=== PATIENT | male | born 1975 | race Caucasian/White ===

== ENCOUNTER 2019-11-22 10:04 | Emergency (ER) | payer OTHER, SELFPAY ==
[2019-11-22] VITALS (24 sets, daily range): BP systolic 113–164; BP diastolic 53–96; PULSE 34–64; RESP 0–21; TEMP 36–36.8; O2SAT 93–100; BMI 26.7
--- NOTE | 2019-11-22 09:39 | ED_ITS ---
Entered by Aubrie Rodriguez, acting as scribe for Jun Saravia DO HPI - Nausea/Vomiting/Diarrhea General: Chief complaint: Abdominal Pain Stated complaint: N/V Time Seen by Provider: 11/22/19 09:48 Source: patient and EMS Mode of arrival: EMS Limitations: no limitations History of Present Illness: HPI Narrative: 44 yo male presents with nausea and vomiting. pt states this started yesterday. pt states he had a recent gall bladder surgery. Pt has chills and sweating episodes. Pt states his father and EMS tried to give him Zofran but he refused because he didn't want to take anything orally. Pt states he has abdomen pain. pt denies any other symptoms at this time. MD elicited complaint: nausea, vomiting and abdominal pain Pertinent past history: other (recent gall bladder surgery) Description of vomiting: watery and bilious Associated nausea: Yes Associated abdominal pain: Yes Pain consistency: constant Severity: moderate Quality: cramping Exacerbating factors: vomiting Relieving factors: none Associated symtoms: Reports fevers/chills, nausea and other (muscle aches, sweats); Denies anxiety, change in vision, chest pain, dizziness, dysuria, headache(s), malaise, palpitations or syncope Treatment prior to arrival: other (EMS tried to give Zofran but pt stated he refused anything in his mouth.) Review of Systems Const: Denies: malaise Eyes: Denies: change in vision or blurry vision ENMT: Denies: throat pain, oral sores/lesions, dental pain, nasal discharge or nasal congestion Card: Denies: chest pain, palpitations, irregular heart rhythm, edema, syncope, shortness of breath on exertion, shortness of breath when lying down or leg pain with exertion Resp: Denies: shortness of breath, productive cough, non-productive cough or wheezing GI: Reports: nausea : Denies: flank pain, difficulty urinating, painful urination, urinary frequency, urinary urgency, urinary incontinence or blood in urine Musc: Denies: neck pain, back pain, extremity pain, extremity swelling, joint pain or joint swelling Skin/Breast: Denies: rash, itching or redness Neuro: Denies: headache, numbness in extremities, weakness in extremities, changes in sensation, lack of coordination, difficulty walking, frequent falls, dizziness, vertigo or confusion Psych: Denies: anxiety, depression, loss of interest, visual hallucinations, auditory hallucinations, suicidal ideation or homicidal ideation Endo: Denies: excessive urination, excessive thirst, tired all the time or cold intolerance Freddy/Lymph: Denies: easy bruising, easy bleeding, petechiae, enlarged lymph nodes or tender lymph nodes PFSH ED PFSH: Statuses (acute, chronic, etc) shown below reflect problem list status as previously entered and may not be historically accurate Surgical History History of cholecystectomy (Acute) Physical Exam Const: COMMON NORMALS: average body habitus, oriented x3 and alert GENERAL APPEARANCE: cooperative, comfortable, well kempt and well developed NUTRITIONAL APPEARANCE: obese ORIENTATION/CONSCIOUSNESS: Yes awake, Yes oriented to person and Yes oriented to place HENMT: COMMON NORMALS: normocephalic, head/scalp atraumatic, EAC's normal, TM's normal bilaterally, external nose normal, moist oral mucous membranes and oropharynx normal HEAD & SCALP: normocephalic and atraumatic NOSE: external nose normal EXTERNAL AUDITORY CANAL: EAC's normal TYMPANIC MEMBRANE: TM's normal bilaterally MOUTH: oral and palatal mucosa normal, lip normal and tongue normal THROAT: posterior oropharynx normal and tonsils normal Eye: COMMON NORMALS: PERRL, EOMs intact bilaterally, conjunctivae normal and no scleral icterus CONJUNCTIVA: Yes conjunctivae normal PUPIL: Yes PERRL Neck/C-Spine: COMMON NORMALS: full ROM, no lymphadenopathy, supple, no meningeal signs and thyroid normal THYROID: thyroid normal and asymmetrical Lymph: LYMPHATIC: no lymphadenopathy noted Resp: COMMON NORMALS: normal respiratory effort, no retractions, no use of accessory muscles and clear to auscultation bilaterally AUSCULTATION: clear to auscultation bilaterally Cardio: COMMON NORMALS: regular rate and regular rhythm RATE: regular rate RHYTHM: regular rhythm HEART SOUNDS: no murmurs GI: COMMON NORMALS: soft to palpation and no hepatosplenomegaly PALPATION: Yes soft, Yes tender (mild diffuse, no gaurding no rebound) and Yes no hepatosplenomegaly : COMMON NORMALS: Yes no CVA tenderness BLADDER/KIDNEY EXAM: Yes no CVA tenderness Back/Pelvis: COMMON NORMALS: no CVA tenderness LUMBAR SPINE/LOWER BACK: Yes normal to inspection Extremity: COMMON NORMALS: no clubbing, cyanosis or edema, no calf tenderness and no pedal edema Neuro: COMMON NORMALS: oriented x3 SENSORIUM/ORIENTATION: Yes alert, Yes oriented to person and Yes oriented to place MENINGEAL SIGNS: Yes no meningeal signs Psych: APPEARANCE: Yes well kempt Skin: COMMON NORMALS: no rashes or lesions noted and skin turgor normal GENERAL SKIN EXAM: no rashes or lesions noted and turgor normal Course ED course: Patient minimally impfoved after IV fluids and antiemetics. Patient admits to regular heavy use of marijuana. Discussed with him believe he has chronic cannabinoid syndrome which is why he had relatively mild improvement after the antiemetics. We did give him a dose of Ativan that helped some we will discharge him home with Ativan and promethazine. Discussed with him the best way to manage this is warm showers capsaicin cream to the abdomen and ultimately stopping the use of the marijuana. Family member present confirms regular marijuana use and endorses our recommendations to the patient Vital Signs: Vital signs: Vital Signs Temperature 98.2 F 11/22/19 14:18 Pulse Rate 58 L 11/22/19 14:18 Respiratory Rate 18 11/22/19 14:18 Blood Pressure 139/91 11/22/19 14:18 Pulse Oximetry 94 11/22/19 14:18 MDM - Nausea/Vomiting/Diarrhea Lab Data: Labs: Lab Results 11/22/19 11/22/19 11/22/19 Range/Units 09:53 09:53 10:18 WBC 16.3 H (4.0-10.0) 10^3/ uL RBC 4.77 (4.1-5.3) 10^6/u L Hgb 15.1 (11.7-16.6) g/dL Hct 46.2 (42.0-52.0) % MCV 96.9 H (80-94) fL MCH 31.7 (28.0-34.0) pg MCHC 32.7 (30.0-36.0) g/dL RDW 12.7 (12.1-15.1) % Plt Count 169 (130-400) 10^3/c mm MPV 10.4 (7.4-10.4) fL Neut % (Auto) 87.6 % Lymph % (Auto) 8.0 % [place] % (Auto) 3.4 % Eos % (Auto) 0.4 % Baso % (Auto) 0.2 % Neut # (Auto) 14.3 H (1.8-7.7) 10^3/u L Lymph # (Auto) 1.3 (0.8-4.8) 10^3/u L [place] # (Auto) 0.6 (0.2-0.9) 10^3/u L Eos # (Auto) 0.1 (0.0-0.8) 10^3/u L Baso # (Auto) 0.0 (0.0-0.1) 10^3/u L Nucleated RBC % (a uto) 0 % Nucleated RBCs # 0.0 /100WBC Sodium 138 (136-145) mmol/L Potassium 4.5 (3.5-5.1) mmol/L Chloride 104 (98-107) mmol/L Carbon Dioxide 21 L (22-29) mmol/L Anion Gap 17.5 (5-19) BUN 14 (6-20) mg/dL Creatinine 0.9 (0.7-1.2) mg/dL GFR Calculation 92.1 (90-130) mL/min Glucose 175 H (74-109) mg/dL Calcium 10.1 H (8.6-10.0) mg/Dl Total Bilirubin 0.4 (0.15-1.2) mg/dL AST 23 (0-40) U/L ALT 19 (0-41) U/L Alkaline Phosphata se 101 (40-130) IU/L Total Protein 7.0 (6.6-8.7) g/dL Albumin 4.9 (3.5-5.2) g/dL Globulin 2.1 (1.3-4.6) g/dL Lipase 44 (13-60) U/L Influenza Type A A g Negative (Negative) POC Influenza B Ag Negative (Negative) Imaging Data^: CXR: Radiologist's impression: [address] [address] XRay Report Signed Patient: Isauro Chacon AUnit #: [id number] : 1975Acct#:[id number] Age/Sex: 44 / MADM Date: 11/22/19 Loc: ERRoom/Bed: Attending Dr: Ordering Provider/Ordering MD: Jun Saravia DO Date of Service: 11/22/19 Procedure(s): XR chest 1V portable [id number] Accession Number(s): [id number] Report Number: [id number] WS: [id number] Portable AP upright chest, 11/22/2019 Clinical Data: dyspnea Comparison: None. Findings: No nodules, masses or effusions are seen. The heart is normal. The pulmonary vascularity is not increased. No pneumonia or pneumothorax is seen. XR/XR chest 1V portable 21194 Impression: Negative chest. Dictated By:Mana Fontanez MD Signed By:Mana Fontanezigned Date/Time:11/22/191303 DD/ 1303 CT Abd/Pel: Radiologist's impression: [place] [address] CT Scan Report Signed Patient: Isauro Chacon AUnjing #: [id number] : 1975Acct#:[id number] Age/Sex: 44 / MADM Date: 11/22/19 Loc: ERRoom/Bed: Attending Dr: Ordering Provider/Ordering MD: Jun Saravia DO Date of Service: 11/22/19 Procedure(s): CT abdomen pelvis w con* [id number] Accession Number(s): [id number] Report Number: [id number] WS: [id number] CT ABDOMEN PELVIS TECHNIQUE: Contrast-enhanced CT of the abdomen and pelvis with coronal and sagittal reformatted images. CLINICAL INFORMATION: abd pain/n/v COMPARISON: 2018 DLP: 907.[address] scans at [facility] use at least one of these dose optimization techniques: automated exposure control; mA and/or kV adjustment per patient size (includes targeted exams where dose is matched to clinical indication); or iterative reconstruction. FINDINGS: Prior cholecystectomy. Normal portal vein and splenic vein. Splenic granulomas. Normal renal parenchymal enhancement. Prostate calcification. No evidence of small or large bowel obstruction. Normal caliber abdominal aorta. Fat-containing umbilical hernia. Prior vertebroplasty changes at L1. Pedicle and screw fixation L2-L4. Stable chronic compression L3. CT/CT abdomen pelvis w con* [id number] IMPRESSION: 1. Prior cholecystectomy. 2. No evidence of small or large bowel obstruction. 3. Remote L1 and L3 compression fractures with prior instrumentation. Dictated By:Jimmy Martinez MD Signed By:Jimmy Martinez MDSigned Date/Time:11/22/19 1235 DD/ 1227 Discharge Plan Discharge Patient Disposition: Home, Self-Care Clinical Impression: Cannabinoid hyperemesis syndrome, Gastroenteritis, Nausea & vomiting Condition: Stable Prescriptions: New promethazine 25 mg tablet 25 mg PO Q6H PRN (Reason: nausea and vomiting) Qty: 20 RF: 0 Ativan 0.5 mg tablet 0.5 mg PO Q8H PRN (Reason: nausea and vomiting) Qty: 10 RF: 0 Discharge Orders: Discharge Order (Routine); Ordered 11/22/19 Ordered By: Jun Saravia Interventions: ED Discharge Assessment Last Done: 11/22/19 14:18 Discharge Date/Time: 11/22/19 14:19 Coding Level of Care Code ED Principal Quality Engineer for Chg Fwd Exam Problem Focused The documentation recorded by the Michael brooks Bridget Annette, accurately reflects the service I personally performed and the decisions made by Manjit vivar Curtis L, DO Nov 22, 2019 10:04
--- NOTE | 2019-11-22 09:48 | XR_ITS ---
WS: [id number] Portable AP upright chest, 11/22/2019 Clinical Data: dyspnea Comparison: None. Findings: No nodules, masses or effusions are seen. The heart is normal. The pulmonary vascularity is not increased. No pneumonia or pneumothorax is seen. XR/XR chest 1V portable [id number] Impression: Negative chest.
--- NOTE | 2019-11-22 09:48 | CT_ITS ---
WS: [id number] CT ABDOMEN PELVIS TECHNIQUE: Contrast-enhanced CT of the abdomen and pelvis with coronal and sagittal reformatted image s. CLINICAL INFORMATION: abd pain/n/v COMPARISON: 2018 DLP: 907.[address] scans at [facility] use at least one of these dose optimization techniques: automat ed exposure control; mA and/or kV adjustment per patient size (includes targeted exams where dose is matched to clinical indication); or iterative reconstruction. FINDINGS: Prior cholecystectomy. Normal portal vein and splenic vein. Splenic granulomas. Normal renal parenchy mal enhancement. Prostate calcification. No evidence of small or large bowel obstruction. Normal brian alfonzo abdominal aorta. Fat-containing umbilical hernia. Prior vertebroplasty changes at L1. Pedicle and screw fixation L2-L4 . Stable chronic compression L3. CT/CT abdomen pelvis w con* [id number] IMPRESSION: 1. Prior cholecystectomy. 2. No evidence of small or large bowel obstruction. 3. Remote L1 and L3 compression fractures with prior instrumentation.
[2019-11-22 10:02] LABS: Basophils % 0.2 %; Eosinophils # 0.1 10^3/uL (0.0-0.8); Eosinophils % 0.4 %; Hematocrit 46.2 % (42.0-52.0); Hemoglobin 15.1 g/dL (11.7-16.6); Lymphocytes # 1.3 10^3/uL (0.8-4.8); Mean Corpuscular HGB Conc 32.7 g/dL (30.0-36.0); Mean Corpuscular Hemoglobin 31.7 pg (28.0-34.0); Mean Corpuscular Volume 96.9 fL (80-94); Mean Platelet Volume 10.4 fL (7.4-10.4); Monocytes # 0.6 10^3/uL (0.2-0.9); Monocytes % 3.4 %; Neutrophils # 14.3 10^3/uL (1.8-7.7); Neutrophils % 87.6 %; Nucleated Red Blood Cells % 0 %; Platelet Count 169 10^3/cmm (130-400); Red Blood Count 4.77 10^6/uL (4.1-5.3); Red Cell Distribution Width 12.7 % (12.1-15.1); White Blood Count 16.3 10^3/uL (4.0-10.0)
[2019-11-22] MEDS: sodium chloride 0.9% 1,000 ML 999 ML IV ×2 (10:13→11:21)
[2019-11-22] MEDS: ondansetron 2 mg/ML SDV 2 mL 4 MG IVP (10:13)
[2019-11-22 10:22] LABS: Alanine Aminotransferase 19 U/L (0-41); Albumin Level 4.9 g/dL (3.5-5.2); Alkaline Phosphatase 101 IU/L (40-130); Anion Gap 17.5 (5-19); Aspartate Amino Transferase 23 U/L (0-40); Blood Urea Nitrogen 14 mg/dL (6-20); Calcium 10.1 mg/Dl (8.6-10.0); Carbon Dioxide 21 mmol/L (22-29); Chloride 104 mmol/L (98-107); Globulin 2.1 g/dL (1.3-4.6); Glomerular Filtration Rate 92.1 mL/min (90-130); Glucose 175 mg/dL (74-109); Lipase 44 U/L (13-60); Potassium 4.5 mmol/L (3.5-5.1); Sodium 138 mmol/L (136-145); Total Bilirubin 0.4 mg/dL (0.15-1.2)
[2019-11-22 11:01] LABS: Influenza A by IFA Negative (Negative); Influenza B by IFA Negative (Negative)
--- NOTE | 2019-11-22 11:24 | PC.NURSE ---
Pt up to BR
--- NOTE | 2019-11-22 11:36 | PC.NURSE ---
Pt to radiology
[2019-11-22] MEDS: iohexol 300 mg/mL 100 mL Btl IV (11:45)
--- NOTE | 2019-11-22 11:48 | PC.NURSE ---
Pt returned from CT
--- NOTE | 2019-11-22 12:43 | PC.NURSE ---
Pt moved to jeffries bed for now
[2019-11-22] MEDS: sodium chloride 0.9% 1,000 ML 150 ML IV (12:56)
== END 2019-11-22 14:19 | disposition home or self-care (01) ==
PROVIDERS: Emergency Provider Family Medicine
DX: F12.988 Cannabis use, unspecified with other cannabis-induced disorder (principal); R11.10 Vomiting, unspecified; K52.9 Noninfective gastroenteritis and colitis, unspecified
CPT/HCPCS: 36415; 71045; 74177; 80053; 83690; 85025; 87040; 87804; 96360; 96361; 96374; 99283; J2405; J7030; Q9967

== ENCOUNTER → 2020-01-05 14:43 | Outpatient (BNVA) | payer OTHER, SELFPAY | PROVIDERS: PCP Emergency Medicine Emergency Medical Services; Visit Provider Nurse Practitioner Family | DX: R09.81 Nasal congestion (principal); J01.40 Acute pansinusitis, unspecified; L01.00 Impetigo, unspecified | CPT/HCPCS: 87804 ==

== ENCOUNTER 2020-05-01 09:37 | Outpatient (CLI) | payer OTHER, SELFPAY ==
--- NOTE | 2020-05-01 09:46 | XRR_ITS ---
PROCEDURE INFORMATION: Exam: XR Lumbosacral Spine, 2 or 3 Views Exam date and time: 05/01/2020 9:59 AM Age: 44 years old Clinical indication: Low back pain; Prior surgery; Surgery date: 1-6 months; Surgery type: L spine TECHNIQUE: Imaging protocol: XR of the lumbosacral spine, 2 or 3 views. COMPARISON: No relevant prior studies available. FINDINGS: Vertebrae: Lumbar laminectomy and pedicle screw fixation extending from L2-L4, in association with L3 compression fracture. L1 vertebral plasty. Degenerative change. Intraperitoneal space: Status post cholecystectomy. Gastrointestinal tract: Bowel dilatation and prominent stool. Vasculature: Multiple subcentimeter pelvic calcifications, presumably vascular in etiology. XR/XR lumbar spine 2-3V* [id number] IMPRESSION: Lumbar laminectomy and pedicle screw fixation extending from L2-L4, in association with L3 compression fracture.
== END 2020-05-01 09:38 | disposition home or self-care (01) ==
LOC: RAD 09:43
PROVIDERS: PCP Emergency Medicine Emergency Medical Services; Visit Provider Physician Assistant
DX: S32.030A Wedge compression fracture of third lumbar vertebra, initial encounter for closed fracture (principal); X58.XXXA Exposure to other specified factors, initial encounter
CPT/HCPCS: 72100

== ENCOUNTER 2020-05-27 19:46 | Emergency (ER) | payer OTHER, SELFPAY ==
[2020-05-27 20:07] VITALS: BP 177/140; PULSE 84; RESP 25; TEMP 35.9; O2SAT 100; BMI 26.2
--- NOTE | 2020-05-27 20:09 | W.ED.ABDPA2 ---
HPI - Abdominal Pain General: Chief Complaint: Abdominal Pain Stated Complaint: vomitting Time Seen by Provider: 05/27/20 20:06 Source: patient Mode of arrival: ambulatory Limitations: no limitations History of Present Illness: HPI narrative: 44-year-old male who has a history of cyclical vomiting syndrome states he started vomiting 1 hour ago. Patient currently is actively vomiting and is sticking his finger down his throat while was in the room vomiting. Patient been seen here before for same. He has diffuse abdominal pain as well. He denies any recent illnesses or fever. He denies any diarrhea. MD elicited complaint: abdominal pain Onset (ago): hour(s) Pain Consistency: constant Location: Diffuse Severity: moderate Quality: cramping Exacerbating factors: nothing Relieving factors: nothing Associated Symptoms: Reports nausea and vomiting; Denies chills, dysuria and fever(s) Review of Systems Const: Denies: fever(s), chills, body aches or change in appetite Eyes: Denies: blurry vision or eye discomfort ENMT: Denies: throat pain or dental pain Card: Denies: chest pain Resp: Denies: dyspnea GI: Reports: abdominal pain, nausea and vomiting : Denies: dysuria Musc: Denies: neck pain or back pain Skin/Breast: Denies: rash Neuro: Denies: headache(s) Psych: Denies: depression Freddy/Lymph: Denies: easy bruising All/Imm: Denies: urticaria PFSH ED PFSH: Surgical History History of cholecystectomy Social History (Updated 01/05/20 @ 14:44 by Cara Farmer LPN) Smoking and tobacco status: never smoked Alcohol intake: never Physical Exam Const: COMMON NORMALS: patient oriented x3 and healthy appearing GENERAL APPEARANCE: in distress OTHER: Actively vomiting HENMT: COMMON NORMALS: normocephalic and atraumatic HEAD & SCALP: normocephalic and atraumatic Eye: COMMON NORMALS: Equal, round and reactive pupils present and EOMs intact bilaterally PUPIL: Yes Equal, round and reactive pupils present Neck/C-Spine: COMMON NORMALS: full ROM and supple Chest: COMMONS NORMALS: normal inspection of the chest and normal palpation of entire chest wall Resp: COMMON NORMALS: normal respiratory effort, No retractions, No use of accessory muscles and clear to auscultation bilaterally AUSCULTATION: clear to auscultation bilaterally Cardio: COMMON NORMALS: regular rate, regular rhythm and No murmurs present (Cardio) RATE: regular rate RHYTHM: regular rhythm GI: COMMON NORMALS: Normal to inspection, nondistended, normoactive bowel sounds present, Soft to palpation, non-tender and no masses PALPATION: Yes Soft to palpation Extremity: COMMON NORMALS: normal to inspection and full ROM Neuro: COMMON NORMALS: patient oriented x3, moves all extremities and no focal motor deficits Psych: COMMON NORMALS: mental status grossly normal, Normal thought process present and cooperative THOUGHT PROCESS: Normal thought process present Skin: COMMON NORMALS: no rashes or lesions noted and no wounds GENERAL SKIN EXAM: no rashes or lesions noted Course Vital Signs: Vital signs: Vital Signs Temperature 96.7 F L 05/27/20 20:07 Pulse Rate 68 05/27/20 22:46 Respiratory Rate 18 05/27/20 22:46 Blood Pressure 125/87 05/27/20 22:46 Pulse Oximetry 98 05/27/20 22:46 MDM - Abdominal Pain MDM Narrative: Medical decision making narrative: Isauro presents here with vomiting and has a history of cyclical vomiting syndrome. Patient feels improved here after antinausea meds. Patient's blood work is normal and he has no signs of acute surgical emergency. Patient is stable for discharge will prescribe him Reglan. He is to follow-up with primary care doctor in 3 to 5 days and return if worsening. Lab Data: Labs: Lab Results 05/27/20 05/27/20 Range/Units 20:23 20:23 WBC 9.3 (4.0-10.0) 10^3/ uL RBC 4.94 (4.1-5.3) 10^6/u L Hgb 15.4 (11.7-16.6) g/dL Hct 46.5 (42.0-52.0) % MCV 94.1 H (80-94) fL MCH 31.2 (28.0-34.0) pg MCHC 33.1 (30.0-36.0) g/dL RDW 13.0 (12.1-15.1) % Plt Count 203 (130-400) 10^3/c mm MPV 10.0 (7.4-10.4) fL Neut % (Auto) 61.7 % Lymph % (Auto) 28.3 % [place] % (Auto) 6.4 % Eos % (Auto) 2.5 % Baso % (Auto) 0.8 % Neut # (Auto) 5.73 (1.8-7.7) 10^3/u L Lymph # (Auto) 2.6 (0.8-4.8) 10^3/u L [place] # (Auto) 0.6 (0.2-0.9) 10^3/u L Eos # (Auto) 0.2 (0.0-0.8) 10^3/u L Baso # (Auto) 0.1 (0.0-0.1) 10^3/u L Nucleated RBC % (a uto) 0 % Nucleated RBCs # 0.0 /100WBC Sodium 142 (136-145) mmol/L Potassium 3.2 L (3.5-5.1) mmol/L Chloride 104 (98-107) mmol/L Carbon Dioxide 19 L (22-29) mmol/L Anion Gap 22.2 H (5-19) BUN 11 (6-20) mg/dL Creatinine 1.1 (0.7-1.2) mg/dL GFR Calculation 73.1 L (90-130) mL/min Glucose 119 H (65-115) mg/dL Calculated Osmolal ity 291 (285-295) mOsm/k g Calcium 9.9 (8.5-10.5) mg/dL Total Bilirubin 0.8 (0.15-1.2) mg/dL AST 31 (0-40) U/L ALT 22 (0-41) U/L Alkaline Phosphata se 108 (40-130) IU/L Total Protein 8.1 (6.6-8.7) g/dL Albumin 5.4 H (3.5-5.2) g/dL Globulin 2.7 (1.3-4.6) g/dL Lipase 21 (13-60) U/L Discharge Plan Discharge Patient Disposition: Home, Self-Care Clinical Impression: Vomiting Qualifiers: Vomiting type: unspecified Vomiting Intractability: non-intractable Nausea presence: with nausea Qualified Code(s): R11.2 - Nausea with vomiting, unspecified Abdominal pain Qualifiers: Abdominal location: generalized Qualified Code(s): R10.84 - Generalized abdominal pain Condition: Stable Prescriptions: New ondansetron 4 mg tablet,disintegrating 4 mg PO Q6H PRN (Reason: nausea and vomiting) Qty: 14 RF: 0 No Action acetaminophen 325 mg capsule 650 mg PO ONCE Qty: 2 RF: 0 Ativan 0.5 mg tablet 0.5 mg PO Q8H PRN (Reason: nausea and vomiting) Qty: 10 RF: 0 Discharge Orders: Discharge Order (Routine); Ordered 05/27/20 Ordered By: Le Mazariegos Referrals: Mian Hendrickson DO [Primary Care Provider] - 1-3 days Discharge Diet: Advance as tolerated Discharge Activity: Resume usual activity Patient Instructions: Acute Nausea and Vomiting (ED), Abdominal Pain (ED) Discharge Date/Time: 05/27/20 22:48 Coding Level of Care Code ED Insurance Claims Clerk for Susie Fwd Exam Comprehensive
[2020-05-27 20:29] LABS: Basophils # 0.1 10^3/uL (0.0-0.1); Basophils % 0.8 %; Eosinophils # 0.2 10^3/uL (0.0-0.8); Eosinophils % 2.5 %; Hematocrit 46.5 % (42.0-52.0); Hemoglobin 15.4 g/dL (11.7-16.6); Lymphocytes # 2.6 10^3/uL (0.8-4.8); Lymphocytes % 28.3 %; Mean Corpuscular HGB Conc 33.1 g/dL (30.0-36.0); Mean Corpuscular Hemoglobin 31.2 pg (28.0-34.0); Mean Corpuscular Volume 94.1 fL (80-94); Monocytes # 0.6 10^3/uL (0.2-0.9); Monocytes % 6.4 %; Neutrophils # 5.73 10^3/uL (1.8-7.7); Neutrophils % 61.7 %; Nucleated Red Blood Cells % 0 %; Platelet Count 203 10^3/cmm (130-400); Red Blood Count 4.94 10^6/uL (4.1-5.3); White Blood Count 9.3 10^3/uL (4.0-10.0)
[2020-05-27 20:33] VITALS: RESP 18; O2SAT 98
[2020-05-27] MEDS: morphine 4 mg/mL SDV 1 mL IVP ×2 (20:33→21:53)
[2020-05-27] MEDS: LORazepam 2 mg/mL INJ 1 mL 1 MG IVP (20:34)
[2020-05-27] MEDS: metoclopramide 5 mg/mL SDV 2 mL 10 MG IVP (20:35)
[2020-05-27] MEDS: diphenhydrAMINE 50 mg/mL SDV 1mL 25 MG IVP (20:35)
[2020-05-27] MEDS: sodium chloride 0.9% 1,000 ML 999 ML IV (20:36)
[2020-05-27 20:43] LABS: Alanine Aminotransferase 22 U/L (0-41); Albumin Level 5.4 g/dL (3.5-5.2); Alkaline Phosphatase 108 IU/L (40-130); Anion Gap 22.2 (5-19); Aspartate Amino Transferase 31 U/L (0-40); Blood Urea Nitrogen 11 mg/dL (6-20); Calcium 9.9 mg/dL (8.5-10.5); Carbon Dioxide 19 mmol/L (22-29); Chloride 104 mmol/L (98-107); Globulin 2.7 g/dL (1.3-4.6); Glomerular Filtration Rate 73.1 mL/min (90-130); Glucose 119 mg/dL (65-115); Lipase 21 U/L (13-60); Osmolality Calculated 291 mOsm/kg (285-295); Potassium 3.2 mmol/L (3.5-5.1); Sodium 142 mmol/L (136-145); Total Bilirubin 0.8 mg/dL (0.15-1.2); Total Protein 8.1 g/dL (6.6-8.7)
[2020-05-27] MEDS: LORazepam 2 mg/mL INJ 1 mL 0.5 MG IVP (21:52)
[2020-05-27 21:53] VITALS: RESP 18; O2SAT 99
[2020-05-27] MEDS: ondansetron 2 mg/ML SDV 2 mL 4 MG IVP (22:13)
[2020-05-27 22:46] VITALS: BP 125/87; PULSE 68; RESP 18; O2SAT 98
== END 2020-05-27 22:48 | disposition home or self-care (01) ==
PROVIDERS: Nurse Practitioner Family; Emergency Provider Emergency Medicine; PCP Emergency Medicine Emergency Medical Services
DX: R10.84 Generalized abdominal pain (principal); R11.2 Nausea with vomiting, unspecified
CPT/HCPCS: 12345; 80053; 83690; 85025; 96361; 96374; 96375; 96376; 99282; 99283; J1200; J2060; J2270; J2405; J2765; J7030

== ENCOUNTER 2020-07-31 02:28 | Emergency (ER) | payer OTHER, SELFPAY ==
[2020-07-31 02:35] VITALS: BP 151/81; PULSE 99; RESP 18; TEMP 36.4; O2SAT 100; BMI 27.0
--- NOTE | 2020-07-31 02:47 | W.ED.NAVMDI ---
HPI - Nausea/Vomiting/Diarrhea General: Chief complaint: Nausea/Vomiting/Diarrhea Stated complaint: Abd pain/vomiting Time Seen by Provider: 07/31/20 02:33 Source: patient Mode of arrival: ambulatory Limitations: no limitations History of Present Illness: HPI Narrative: 44-year-old male has a history of cyclical vomiting syndrome. He states he started having severe vomiting 1 hour ago. He had multiple episodes of vomiting and severe nausea. He has abdominal cramping he rates a 5 out of 10. He states this feels like his sickle vomiting in the past. He denies any fever. Denies any diarrhea. Denies any worsening improving factors. Associated nausea: Yes Associated symtoms: Reports nausea; Denies chest pain, dysuria or headache(s) Review of Systems Const: Denies: fever(s), chills, body aches or change in appetite Eyes: Denies: blurry vision or eye discomfort ENMT: Denies: throat pain or dental pain Card: Denies: chest pain Resp: Denies: dyspnea GI: Reports: abdominal pain, nausea and vomiting : Denies: dysuria Musc: Denies: neck pain or back pain Skin/Breast: Denies: rash Neuro: Denies: headache(s) Psych: Denies: depression Freddy/Lymph: Denies: easy bruising All/Imm: Denies: urticaria PFSH ED PFSH: Surgical History History of cholecystectomy Social History Smoking and tobacco status: never smoked Alcohol intake: never Physical Exam Const: COMMON NORMALS: patient oriented x3 and healthy appearing GENERAL APPEARANCE: in distress HENMT: COMMON NORMALS: normocephalic and atraumatic HEAD & SCALP: normocephalic and atraumatic Eye: COMMON NORMALS: Equal, round and reactive pupils present and EOMs intact bilaterally PUPIL: Yes Equal, round and reactive pupils present Neck/C-Spine: COMMON NORMALS: full ROM and supple Chest: COMMONS NORMALS: normal inspection of the chest and normal palpation of entire chest wall Resp: COMMON NORMALS: normal respiratory effort, No retractions, No use of accessory muscles and clear to auscultation bilaterally AUSCULTATION: clear to auscultation bilaterally Cardio: COMMON NORMALS: regular rate, regular rhythm and No murmurs present (Cardio) RATE: regular rate RHYTHM: regular rhythm GI: COMMON NORMALS: Normal to inspection, nondistended, normoactive bowel sounds present, Soft to palpation, non-tender and no masses PALPATION: Yes Soft to palpation Extremity: COMMON NORMALS: normal to inspection and full ROM Neuro: COMMON NORMALS: patient oriented x3, moves all extremities and no focal motor deficits Psych: COMMON NORMALS: mental status grossly normal, Normal thought process present and cooperative THOUGHT PROCESS: Normal thought process present Skin: COMMON NORMALS: no rashes or lesions noted and no wounds GENERAL SKIN EXAM: no rashes or lesions noted Course Vital Signs: Vital signs: Vital Signs Temperature 97.6 F 07/31/20 02:35 Pulse Rate 61 07/31/20 03:36 Respiratory Rate 12 07/31/20 03:36 Blood Pressure 161/92 07/31/20 03:36 Pulse Oximetry 92 07/31/20 03:36 MDM - Nausea/Vomiting/Diarrhea MDM Narrative: Medical decision making narrative: Patient presents here with vomiting likely sickle vomiting syndrome. Patient feels much improved here and exam at discharge is benign. Blood work here is normal. He has no signs of acute abdominal surgical cause. Will prescribe him Reglan and he is stable for discharge and return if worsening. Lab Data: Labs: Lab Results 07/31/20 07/31/20 Range/Units 02:50 02:50 WBC 10.8 H (4.0-10.0) 10^3/ uL RBC 4.74 (4.1-5.3) 10^6/u L Hgb 14.8 (11.7-16.6) g/dL Hct 44.2 (42.0-52.0) % MCV 93.2 (80-94) fL MCH 31.2 (28.0-34.0) pg MCHC 33.5 (30.0-36.0) g/dL RDW 12.3 (12.1-15.1) % Plt Count 216 (130-400) 10^3/c mm MPV 10.2 (7.4-10.4) fL Neut % (Auto) 65.0 % Lymph % (Auto) 25.5 % [place] % (Auto) 6.9 % Eos % (Auto) 1.7 % Baso % (Auto) 0.7 % Neut # (Auto) 7.04 (1.8-7.7) 10^3/u L Lymph # (Auto) 2.8 (0.8-4.8) 10^3/u L [place] # (Auto) 0.8 (0.2-0.9) 10^3/u L Eos # (Auto) 0.2 (0.0-0.8) 10^3/u L Baso # (Auto) 0.1 (0.0-0.1) 10^3/u L Nucleated RBC % (a uto) 0 % Nucleated RBCs # 0.0 /100WBC Sodium 141 (136-145) mmol/L Potassium 3.3 L (3.5-5.1) mmol/L Chloride 104 (98-107) mmol/L Carbon Dioxide 22 (22-29) mmol/L Anion Gap 18.3 (5-19) BUN 16 (6-20) mg/dL Creatinine 1.2 (0.7-1.2) mg/dL GFR Calculation 66.1 L (90-130) mL/min Glucose 164 H (65-115) mg/dL Calculated Osmolal ity 297 H (285-295) mOsm/k g Calcium 10.1 (8.5-10.5) mg/dL Total Bilirubin 0.6 (0.15-1.2) mg/dL AST 26 (0-40) U/L ALT 21 (0-41) U/L Alkaline Phosphata se 102 (40-130) IU/L Total Protein 7.4 (6.6-8.7) g/dL Albumin 4.7 (3.5-5.2) g/dL Globulin 2.7 (1.3-4.6) g/dL Lipase 31 (13-60) U/L Discharge Plan Discharge Patient Disposition: Home Clinical Impression: Vomiting Qualifiers: Vomiting type: unspecified Vomiting Intractability: non-intractable Nausea presence: with nausea Qualified Code(s): R11.2 - Nausea with vomiting, unspecified Condition: Stable Prescriptions: New Reglan 10 mg tablet 10 mg PO Q6H PRN (Reason: nausea and vomiting) Qty: 20 RF: 0 No Action acetaminophen 325 mg capsule 650 mg PO ONCE Qty: 2 RF: 0 Ativan 0.5 mg tablet 0.5 mg PO Q8H PRN (Reason: nausea and vomiting) Qty: 10 RF: 0 ondansetron 4 mg tablet,disintegrating 4 mg PO Q6H PRN (Reason: nausea and vomiting) Qty: 14 RF: 0 Discharge Orders: Discharge Order (Routine); Ordered 07/31/20 Ordered By: Le Mazariegos Referrals: Mian Hendrickson DO [Primary Care Provider] - 1-3 days Discharge Diet: Advance as tolerated Discharge Activity: Resume usual activity Patient Instructions: Acute Nausea and Vomiting (ED) Coding Level of Care Code ED [employer] Technician for Chg Fwd Exam Comprehensive
[2020-07-31] MEDS: metoclopramide 5 mg/mL SDV 2 mL 10 MG IVP (02:50)
[2020-07-31] MEDS: diphenhydrAMINE 50 mg/mL SDV 1mL IVP (02:51)
[2020-07-31] MEDS: sodium chloride 0.9% 1,000 ML 999 ML IV (02:52)
[2020-07-31 02:58] VITALS: BP 168/85; PULSE 50; RESP 12; O2SAT 100
[2020-07-31 02:59] LABS: Basophils # 0.1 10^3/uL (0.0-0.1); Basophils % 0.7 %; Eosinophils # 0.2 10^3/uL (0.0-0.8); Eosinophils % 1.7 %; Hematocrit 44.2 % (42.0-52.0); Hemoglobin 14.8 g/dL (11.7-16.6); Lymphocytes # 2.8 10^3/uL (0.8-4.8); Lymphocytes % 25.5 %; Mean Corpuscular HGB Conc 33.5 g/dL (30.0-36.0); Mean Corpuscular Hemoglobin 31.2 pg (28.0-34.0); Mean Corpuscular Volume 93.2 fL (80-94); Mean Platelet Volume 10.2 fL (7.4-10.4); Monocytes # 0.8 10^3/uL (0.2-0.9); Monocytes % 6.9 %; Neutrophils # 7.04 10^3/uL (1.8-7.7); Nucleated Red Blood Cells % 0 %; Platelet Count 216 10^3/cmm (130-400); Red Blood Count 4.74 10^6/uL (4.1-5.3); Red Cell Distribution Width 12.3 % (12.1-15.1); White Blood Count 10.8 10^3/uL (4.0-10.0)
[2020-07-31 03:03] VITALS: RESP 18; O2SAT 97
[2020-07-31] MEDS: LORazepam 2 mg/mL INJ 1 mL 1 MG IVP (03:03)
[2020-07-31] MEDS: morphine 4 mg/mL SDV 1 mL IVP (03:03)
[2020-07-31 03:28] LABS: Alanine Aminotransferase 21 U/L (0-41); Albumin Level 4.7 g/dL (3.5-5.2); Alkaline Phosphatase 102 IU/L (40-130); Anion Gap 18.3 (5-19); Aspartate Amino Transferase 26 U/L (0-40); Blood Urea Nitrogen 16 mg/dL (6-20); Calcium 10.1 mg/dL (8.5-10.5); Carbon Dioxide 22 mmol/L (22-29); Chloride 104 mmol/L (98-107); Globulin 2.7 g/dL (1.3-4.6); Glomerular Filtration Rate 66.1 mL/min (90-130); Glucose 164 mg/dL (65-115); Lipase 31 U/L (13-60); Osmolality Calculated 297 mOsm/kg (285-295); Potassium 3.3 mmol/L (3.5-5.1); Sodium 141 mmol/L (136-145); Total Bilirubin 0.6 mg/dL (0.15-1.2); Total Protein 7.4 g/dL (6.6-8.7)
[2020-07-31 03:36] VITALS: BP 161/92; PULSE 61; RESP 12; O2SAT 92
[2020-07-31 04:02] VITALS: BP 137/91; PULSE 51; RESP 12; O2SAT 97
== END 2020-07-31 03:49 | disposition home or self-care (01) ==
PROVIDERS: Emergency Provider Emergency Medicine; PCP Emergency Medicine Emergency Medical Services
DX: R11.2 Nausea with vomiting, unspecified (principal)
CPT/HCPCS: 12345; 80053; 83690; 85025; 96360; 96375; 99283; 99284; J1200; J2060; J2270; J2765; J7030

== ENCOUNTER 2020-08-17 02:13 | Emergency (ER) | payer OTHER, SELFPAY ==
[2020-08-17] VITALS (7 sets, daily range): BP systolic 138–177; BP diastolic 71–99; PULSE 51–89; RESP 16–18; TEMP 36.3; O2SAT 96–100; BMI 25.5
--- NOTE | 2020-08-17 02:20 | ECG_ITS ---
[facility] Test Date: 2020-08-17 Pat Name: Isauro Chacon Department: Room: Gender: Male [employer] Salesperson: : 1975 Requested By: Zainab Rodriguez Order Number: [id number] Beckman MD: Tania Lucio M.D. Measurements Intervals [place] Rate: 40 P: 65 FL: 166 QRS: 61 QRSD: 93 T: 51 QT: 471 QTc: 385 Interpretive Statements SINUS BRADYCARDIA WITH SINUS ARRHYTHMIA CRITICAL TEST RESULT No previous ECG available for comparison Electronically Signed On 08-17-2020 21:35:04 CDT by Tania Lucio M.D. [id number]
[2020-08-17] MEDS: sodium chloride 0.9% 1,000 ML 999 ML IV ×3 (02:35→05:16)
[2020-08-17] MEDS: diphenhydrAMINE 50 mg/mL SDV 1mL IVP (02:36)
[2020-08-17] MEDS: haloperidol inj 5 mg/mL INJ 1 mL IM (02:37)
[2020-08-17 02:40] LABS: Basophils # 0.1 10^3/uL (0.0-0.1); Basophils % 0.7 %; Eosinophils # 0.2 10^3/uL (0.0-0.8); Eosinophils % 2.2 %; Hematocrit 45.4 % (42.0-52.0); Hemoglobin 15.2 g/dL (11.7-16.6); Lymphocytes # 2.8 10^3/uL (0.8-4.8); Lymphocytes % 37.9 %; Mean Corpuscular HGB Conc 33.5 g/dL (30.0-36.0); Mean Corpuscular Hemoglobin 31.5 pg (28.0-34.0); Mean Platelet Volume 9.9 fL (7.4-10.4); Monocytes # 0.7 10^3/uL (0.2-0.9); Monocytes % 9.3 %; Neutrophils # 3.62 10^3/uL (1.8-7.7); Neutrophils % 49.8 %; Nucleated Red Blood Cells % 0 %; Platelet Count 212 10^3/cmm (130-400); Red Blood Count 4.83 10^6/uL (4.1-5.3); Red Cell Distribution Width 12.2 % (12.1-15.1); White Blood Count 7.3 10^3/uL (4.0-10.0)
--- NOTE | 2020-08-17 02:44 | ED_ITS ---
Documented by User: Zainab Coffman 08/17/20 05:22 HPI - Nausea/Vomiting/Diarrhea General: Chief complaint: Nausea/Vomiting/Diarrhea Stated complaint: N/V Time Seen by Provider: 08/17/20 02:16 Source: patient and family Mode of arrival: ambulatory Limitations: no limitations History of Present Illness: HPI Narrative: Mr. Chacon is a nice 44-year-old ma le who comes in complaining of a flareup of his cyclic vomiting syndrome. He states he has had these episodes numerous times and has to come to the emergency department to get medications to stop this. He states that haloperidol and Benadryl usually works very good for his symptoms. Patient states he has cramping abdominal pain and diarrhea as well. Patient states that he is waiting to have colonoscopy and EGD at the [place] for his symptoms. Patient states up to this point no cause has been determined. Patient denies any chest pain, shortness of breath, fever, chills or headache. During history the patient repeatedly tries to gag himself to try and throw up. He states he feels as though if he can get things out of his system he would feel better. Associated nausea: Yes Associated symtoms: Reports nausea; Denies change in vision, chest pain, diaphoresis, dizziness, dysuria, fatigue, headache(s), malaise, palpitations or syncope Review of Systems Const: Denies: fever(s), chills, body aches, fatigue, malaise or diaphoresis Eyes: Denies: change in vision, blurry vision, photophobia, eye discomfort, eye discharge, eye redness or yellow eyes ENMT: Denies: throat pain, odynophagia, hoarseness, swelling of lips/tongue, ear or mastoid pain, ear discharge, change in hearing or nasal discharge Card: Denies: chest pain, palpitations, irregular heart rhythm, edema, lightheadedness, syncope, pre-syncope, dyspnea on exertion or orthopnea Resp: Denies: dyspnea, productive cough, non-productive cough, wheezing, hemoptysis or chest congestion GI: Reports: abdominal pain, nausea and vomiting; Denies: hematemesis, coffee ground emesis, heartburn, diarrhea, constipation, GI cramping, hematochezia or melena : Denies: flank pain, dysuria, urinary frequency, urinary urgency or hematuria Musc: Denies: neck pain, back pain, extremity pain, extremity swelling, joint pain, joint swelling, joint redness, joint warmth or joint stiffness Skin/Breast: Denies: rash, pruritus, erythema, skin pain or skin tenderness Neuro: Denies: headache(s), numbness in extremities, weakness in extremities, sensory changes, lack of coordination, difficulty walking, dizziness, vertigo, confusion, Slurred speech present or seizure-like activity Freddy/Lymph: Denies: easy bruising, easy bleeding, petechiae, purpura or enlarged lymph nodes All/Imm: Denies: urticaria, throat swelling, tongue swelling, facial swelling or acute wheezing PFSH ED PFSH: Medical History (Updated 08/17/20 @ 07:43 by Jun Saravia DO) Cyclic vomiting syndrome Surgical History History of cholecystectomy Social History Smoking and tobacco status: never smoked Alcohol intake: never Physical Exam Const: COMMON NORMALS: patient oriented x3, no limitations and alert GENERAL APPEARANCE: cooperative HENMT: COMMON NORMALS: normocephalic, atraumatic, external ears normal, EAC's normal and Normal external nose present HEAD & SCALP: normal to inspection, normocephalic and atraumatic FACE & SINUS: normal facial exam and face symmetric NOSE: Normal external nose present and Normal nares present EXTERNAL EAR: Yes external ears normal EXTERNAL AUDITORY CANAL: EAC's normal MOUTH: Normal oral and palatal mucosa present, lip normal and tongue normal Eye: COMMON NORMALS: Equal, round and reactive pupils present and conjunctivae normal GENERAL EYE: appearance normal, both eyes and all related structures ALIGNMENT: Yes alignment normal PERIORBITAL: periorbital findings normal EYELID: eyelids normal CONJUNCTIVA: Yes conjunctivae normal SCLERA: sclerae normal PUPIL: Yes Equal, round and reactive pupils present Neck/C-Spine: COMMON NORMALS: full ROM, no lymphadenopathy, supple, no meningeal signs and no JVD GENERAL: Yes normal visual inspection and Yes trachea midline Chest: COMMONS NORMALS: normal inspection of the chest and normal palpation of entire chest wall Resp: COMMON NORMALS: normal respiratory effort, No retractions, No use of accessory muscles and clear to auscultation bilaterally EFFORT & INSPECTION: Yes able to speak in complete sentences and Yes symmetric chest movement AUSCULTATION: clear to auscultation bilaterally, no crackles, no rales, no rhonchi and no wheezes Cardio: COMMON NORMALS: no JVD, regular rate, regular rhythm, S1 normal heart sound present and S2 normal heart sound present RATE: regular rate RHYTHM: regular rhythm HEART SOUNDS: S1 normal heart sound present, S2 normal heart sound present, no click, no gallops, no murmurs and no rubs GI: COMMON NORMALS: Soft to palpation and No hepatosplenomegaly present PALPATION: Yes Soft to palpation, No Tenderness to palpation present (GI), No Guarding due to palpation present (GI), No Rigid due to palpation, Yes No hepatosplenomegaly present, No Hernia present, No Palpable mass present and No Pulsatile mass present : COMMON NORMALS: Yes no CVA tenderness BLADDER/KIDNEY EXAM: Yes no CVA tenderness Back/Pelvis: COMMON NORMALS: no CVA tenderness, thoracic and lumbar spine normal to inspection, no thoracic nor lumbar tenderness and thoraco-lumbar ROM normal Extremity: COMMON NORMALS: normal to inspection, full ROM, capillary refill normal, no joint enlargement, no clubbing, cyanosis or edema and no calf tenderness Neuro: COMMON NORMALS: patient oriented x3, CN's II-XII intact bilaterally, moves all extremities, no focal motor deficits and no sensory deficits noted SENSORIUM/ORIENTATION: Yes alert MENINGEAL SIGNS: Yes no meningeal signs SPEECH: speech normal Psych: COMMON NORMALS: mental status grossly normal, Normal thought process present, cooperative, normal affect, speech normal and activity/motor behavior normal SPEECH: Yes normal speech THOUGHT PROCESS: Normal thought process present Skin: COMMON NORMALS: no rashes or lesions noted, turgor normal, no jaundice, no petechiae and no mottling GENERAL SKIN EXAM: no rashes or lesions noted and turgor normal Course ED course: 0357 -patient continues to try to gag himself by sticking his finger down his throat to vomit. He has become bradycardic with a heart rate in the 40s but his blood pressure is stable. I am going to give 0.5 atropine and continue to try to redirect him not to gag himself and we will get control of his nauseousness with medication. Vital Signs: Vital signs: Vital Signs Temperature 97.3 F L 08/17/20 02:18 Pulse Rate 68 08/17/20 07:30 Respiratory Rate 18 08/17/20 05:12 Blood Pressure 138/71 08/17/20 07:30 Pulse Oximetry 98 08/17/20 07:30 MDM - Nausea/Vomiting/Diarrhea Lab Data: Labs: Lab Results 08/17/20 08/17/20 08/17/20 Range/Units 02:26 02:26 02:26 WBC 7.3 (4.0-10.0) 10^3/ uL RBC 4.83 (4.1-5.3) 10^6/u L Hgb 15.2 (11.7-16.6) g/dL Hct 45.4 (42.0-52.0) % MCV 94.0 (80-94) fL MCH 31.5 (28.0-34.0) pg MCHC 33.5 (30.0-36.0) g/dL RDW 12.2 (12.1-15.1) % Plt Count 212 (130-400) 10^3/c mm MPV 9.9 (7.4-10.4) fL Neut % (Auto) 49.8 % Lymph % (Auto) 37.9 % Wagoner % (Auto) 9.3 % Eos % (Auto) 2.2 % Baso % (Auto) 0.7 % Neut # (Auto) 3.62 (1.8-7.7) 10^3/u L Lymph # (Auto) 2.8 (0.8-4.8) 10^3/u L Wagoner # (Auto) 0.7 (0.2-0.9) 10^3/u L Eos # (Auto) 0.2 (0.0-0.8) 10^3/u L Baso # (Auto) 0.1 (0.0-0.1) 10^3/u L Nucleated RBC % (a uto) 0 % Nucleated RBCs # 0.0 /100WBC Sodium 142 (136-145) mmol/L Potassium 3.7 (3.5-5.1) mmol/L Chloride 105 (98-107) mmol/L Carbon Dioxide 22 (22-29) mmol/L Anion Gap 18.7 (5-19) BUN 16 (6-20) mg/dL Creatinine 1.1 (0.7-1.2) mg/dL GFR Calculation 73.1 L (90-130) mL/min Glucose 132 H (65-115) mg/dL Calculated Osmolal ity 297 H (285-295) mOsm/k g Calcium 9.8 (8.5-10.5) mg/dL Magnesium 2.3 (1.7-2.3) mg/dL Total Bilirubin 0.4 (0.15-1.2) mg/dL AST 32 (0-40) U/L ALT 30 (0-41) U/L Alkaline Phosphata se 110 (40-130) IU/L Troponin T Baselin e 9 (0-15) ng/L Troponin T 120 Min redding (0-15) ng/L Delta Troponin T (0-10) ABS# Total Protein 7.0 (6.6-8.7) g/dL Albumin 4.5 (3.5-5.2) g/dL Globulin 2.5 (1.3-4.6) g/dL Lipase 43 (13-60) U/L Urine Color (Yellow) Urine Appearance (CLEAR) Urine pH (5-7) Ur Specific Gravit y (1.005-1.030) Urine Protein (Negative) Urine Glucose (UA) (Normal) Urine Ketones (Negative) Urine Blood (Negative) Urine Nitrate (Negative) Urine Bilirubin (Negative) Urine Urobilinogen (Negative) mg/dL Ur Leukocyte Erica ase (Negative) Urine Opiates Scre en (Negative) ng/mL Ur Barbiturates Sc reen (Negative) ng/mL Ur Phencyclidine S crn (Negative) ng/mL Ur Amphetamines Sc reen (Negative) ng/mL U Benzodiazepines Scrn (Negative) ng/mL Urine Cocaine Scre en (Negative) ng/mL U Marijuana (THC) Screen (Negative) ng/mL H. pylori IgG Anti body (Negative) 08/17/20 08/17/20 08/17/20 Range/Units 02:26 04:22 06:45 WBC (4.0-10.0) 10^3/ uL RBC (4.1-5.3) 10^6/u L Hgb (11.7-16.6) g/dL Hct (42.0-52.0) % MCV (80-94) fL MCH (28.0-34.0) pg MCHC (30.0-36.0) g/dL RDW (12.1-15.1) % Plt Count (130-400) 10^3/c mm MPV (7.4-10.4) fL Neut % (Auto) % Lymph % (Auto) % Wagoner % (Auto) % Eos % (Auto) % Baso % (Auto) % Neut # (Auto) (1.8-7.7) 10^3/u L Lymph # (Auto) (0.8-4.8) 10^3/u L Wagoner # (Auto) (0.2-0.9) 10^3/u L Eos # (Auto) (0.0-0.8) 10^3/u L Baso # (Auto) (0.0-0.1) 10^3/u L Nucleated RBC % (a uto) % Nucleated RBCs # /100WBC Sodium (136-145) mmol/L Potassium (3.5-5.1) mmol/L Chloride (98-107) mmol/L Carbon Dioxide (22-29) mmol/L Anion Gap (5-19) BUN (6-20) mg/dL Creatinine (0.7-1.2) mg/dL GFR Calculation (90-130) mL/min Glucose (65-115) mg/dL Calculated Osmolal ity (285-295) mOsm/k g Calcium (8.5-10.5) mg/dL Magnesium (1.7-2.3) mg/dL Total Bilirubin (0.15-1.2) mg/dL AST (0-40) U/L ALT (0-41) U/L Alkaline Phosphata se (40-130) IU/L Troponin T Baselin e (0-15) ng/L Troponin T 120 Min redding 8.83 (0-15) ng/L Delta Troponin T -0.17 L (0-10) ABS# Total Protein (6.6-8.7) g/dL Albumin (3.5-5.2) g/dL Globulin (1.3-4.6) g/dL Lipase (13-60) U/L Urine Color Yellow (Yellow) Urine Appearance Clear (CLEAR) Urine pH 7 (5-7) Ur Specific Gravit y 1.015 (1.005-1.030) Urine Protein Neg (Negative) Urine Glucose (UA) Norm (Normal) Urine Ketones 1+ H (Negative) Urine Blood Neg (Negative) Urine Nitrate Negative (Negative) Urine Bilirubin Neg (Negative) Urine Urobilinogen 1 H (Negative) mg/dL Ur Leukocyte Erica ase Negative (Negative) Urine Opiates Scre en (Negative) ng/mL Ur Barbiturates Sc reen (Negative) ng/mL Ur Phencyclidine S crn (Negative) ng/mL Ur Amphetamines Sc reen (Negative) ng/mL U Benzodiazepines Scrn (Negative) ng/mL Urine Cocaine Scre en (Negative) ng/mL U Marijuana (THC) Screen (Negative) ng/mL H. pylori IgG Anti body Negative (Negative) 08/17/20 Range/Units 06:45 WBC (4.0-10.0) 10^3/ uL RBC (4.1-5.3) 10^6/u L Hgb (11.7-16.6) g/dL Hct (42.0-52.0) % MCV (80-94) fL MCH (28.0-34.0) pg MCHC (30.0-36.0) g/dL RDW (12.1-15.1) % Plt Count (130-400) 10^3/c mm MPV (7.4-10.4) fL Neut % (Auto) % Lymph % (Auto) % Wagoner % (Auto) % Eos % (Auto) % Baso % (Auto) % Neut # (Auto) (1.8-7.7) 10^3/u L Lymph # (Auto) (0.8-4.8) 10^3/u L Wagoner # (Auto) (0.2-0.9) 10^3/u L Eos # (Auto) (0.0-0.8) 10^3/u L Baso # (Auto) (0.0-0.1) 10^3/u L Nucleated RBC % (a uto) % Nucleated RBCs # /100WBC Sodium (136-145) mmol/L Potassium (3.5-5.1) mmol/L Chloride (98-107) mmol/L Carbon Dioxide (22-29) mmol/L Anion Gap (5-19) BUN (6-20) mg/dL Creatinine (0.7-1.2) mg/dL GFR Calculation (90-130) mL/min Glucose (65-115) mg/dL Calculated Osmolal ity (285-295) mOsm/k g Calcium (8.5-10.5) mg/dL Magnesium (1.7-2.3) mg/dL Total Bilirubin (0.15-1.2) mg/dL AST (0-40) U/L ALT (0-41) U/L Alkaline Phosphata se (40-130) IU/L Troponin T Baselin e (0-15) ng/L Troponin T 120 Min redding (0-15) ng/L Delta Troponin T (0-10) ABS# Total Protein (6.6-8.7) g/dL Albumin (3.5-5.2) g/dL Globulin (1.3-4.6) g/dL Lipase (13-60) U/L Urine Color (Yellow) Urine Appearance (CLEAR) Urine pH (5-7) Ur Specific Gravit y (1.005-1.030) Urine Protein (Negative) Urine Glucose (UA) (Normal) Urine Ketones (Negative) Urine Blood (Negative) Urine Nitrate (Negative) Urine Bilirubin (Negative) Urine Urobilinogen (Negative) mg/dL Ur Leukocyte Erica ase (Negative) Urine Opiates Scre en Negative (Negative) ng/mL Ur Barbiturates Sc reen Negative (Negative) ng/mL Ur Phencyclidine S crn Negative (Negative) ng/mL Ur Amphetamines Sc reen Negative (Negative) ng/mL U Benzodiazepines Scrn Negative (Negative) ng/mL Urine Cocaine Scre en Negative (Negative) ng/mL U Marijuana (THC) Screen Positive H (Negative) ng/mL H. pylori IgG Anti body (Negative) EKG Data^: EKG 1: Attestation: I personally reviewed and interpreted this EKG as follows: EKG interpretation date: 08/17/20 EKG interpretation time: 02:31 Interpretation: Sinus rhythm with sinus arrhythmia at 66 beats a minute, normal axis, significant wandering baseline artifact, nonspecific ST-T wave changes. Normal QTC. EKG 2: Attestation: I personally reviewed and interpreted this EKG as follows: EKG interpretation date: 08/17/20 EKG interpretation time: 03:03 Interpretation: Sinus bradycardia at 40 beats a minute, normal axis, no blocks, normal intervals, no acute ST-T wave changes. EKG 3: Attestation: I personally reviewed and interpreted this EKG as follows: EKG interpretation date: 08/17/20 EKG interpretation time: 04:43 Interpretation: Normal sinus rhythm at 81 beats a minute, normal axis, no blocks, normal intervals, no acute ST-T wave changes. Discharge Plan Discharge Patient Disposition: Home Clinical Impression: Cannabinoid hyperemesis syndrome Condition: Stable Prescriptions: New promethazine 25 mg tablet 25 mg PO Q6H PRN (Reason: nausea and vomiting) Qty: 20 RF: 0 No Action acetaminophen 325 mg capsule 650 mg PO ONCE Qty: 2 RF: 0 Ativan 0.5 mg tablet 0.5 mg PO Q8H PRN (Reason: nausea and vomiting) Qty: 10 RF: 0 Reglan 10 mg tablet 10 mg PO Q6H PRN (Reason: nausea and vomiting) Qty: 20 RF: 0 ondansetron 4 mg tablet,disintegrating 4 mg PO Q6H PRN (Reason: nausea and vomiting) Qty: 14 RF: 0 Discharge Orders: Discharge Order (Routine); Ordered 08/17/20 Ordered By: Jun Saravia Referrals: Mian Hendrickson DO [Primary Care Provider] - Discharge Diet: Clear Liquid Discharge Activity: Increase activity as tolerated Sign Out Sign Out Data: Patient Sign Out occurred on 08/17/20 at 07:19. Patient's care was discussed, and care was transferred from to Jun Saravia DO. Coding Level of Care Code ED Certified Social Workers In Health Care for Chg Fwd Exam Comprehensive Documented by User: Jun Saravia DO 08/17/20 07:44 HPI - Nausea/Vomiting/Diarrhea General: Chief complaint: Nausea/Vomiting/Diarrhea Stated complaint: N/V Time Seen by Provider: 08/17/20 02:16 [facility] ED PFSH: Medical History (Updated 08/17/20 @ 07:43 by Jun Saravia DO) Cyclic vomiting syndrome Surgical History History of cholecystectomy Social History Smoking and tobacco status: never smoked Alcohol intake: never Course Vital Signs: Vital signs: Vital Signs Temperature 97.3 F L 08/17/20 02:18 Pulse Rate 68 08/17/20 07:30 Respiratory Rate 18 08/17/20 05:12 Blood Pressure 138/71 08/17/20 07:30 Pulse Oximetry 98 08/17/20 07:30 MDM - Nausea/Vomiting/Diarrhea MDM Narrative: Medical decision making narrative: Patient sleeping well nausea and vomiting have resolved. We will go ahead and discharge him home he has bradycardia as a result of medications he received earlier has resolved. We will discharge him home with promethazine to use PRN and will have him follow-up with his primary care doctor as needed. Lab Data: Labs: Lab Results 08/17/20 08/17/20 08/17/20 Range/Units 02:26 02:26 02:26 WBC 7.3 (4.0-10.0) 10^3/ uL RBC 4.83 (4.1-5.3) 10^6/u L Hgb 15.2 (11.7-16.6) g/dL Hct 45.4 (42.0-52.0) % MCV 94.0 (80-94) fL MCH 31.5 (28.0-34.0) pg MCHC 33.5 (30.0-36.0) g/dL RDW 12.2 (12.1-15.1) % Plt Count 212 (130-400) 10^3/c mm MPV 9.9 (7.4-10.4) fL Neut % (Auto) 49.8 % Lymph % (Auto) 37.9 % Wagoner % (Auto) 9.3 % Eos % (Auto) 2.2 % Baso % (Auto) 0.7 % Neut # (Auto) 3.62 (1.8-7.7) 10^3/u L Lymph # (Auto) 2.8 (0.8-4.8) 10^3/u L Wagoner # (Auto) 0.7 (0.2-0.9) 10^3/u L Eos # (Auto) 0.2 (0.0-0.8) 10^3/u L Baso # (Auto) 0.1 (0.0-0.1) 10^3/u L Nucleated RBC % (a uto) 0 % Nucleated RBCs # 0.0 /100WBC Sodium 142 (136-145) mmol/L Potassium 3.7 (3.5-5.1) mmol/L Chloride 105 (98-107) mmol/L Carbon Dioxide 22 (22-29) mmol/L Anion Gap 18.7 (5-19) BUN 16 (6-20) mg/dL Creatinine 1.1 (0.7-1.2) mg/dL GFR Calculation 73.1 L (90-130) mL/min Glucose 132 H (65-115) mg/dL Calculated Osmolal ity 297 H (285-295) mOsm/k g Calcium 9.8 (8.5-10.5) mg/dL Magnesium 2.3 (1.7-2.3) mg/dL Total Bilirubin 0.4 (0.15-1.2) mg/dL AST 32 (0-40) U/L ALT 30 (0-41) U/L Alkaline Phosphata se 110 (40-130) IU/L Troponin T Baselin e 9 (0-15) ng/L Troponin T 120 Min redding (0-15) ng/L Delta Troponin T (0-10) ABS# Total Protein 7.0 (6.6-8.7) g/dL Albumin 4.5 (3.5-5.2) g/dL Globulin 2.5 (1.3-4.6) g/dL Lipase 43 (13-60) U/L Urine Color (Yellow) Urine Appearance (CLEAR) Urine pH (5-7) Ur Specific Gravit y (1.005-1.030) Urine Protein (Negative) Urine Glucose (UA) (Normal) Urine Ketones (Negative) Urine Blood (Negative) Urine Nitrate (Negative) Urine Bilirubin (Negative) Urine Urobilinogen (Negative) mg/dL Ur Leukocyte Erica ase (Negative) Urine Opiates Scre en (Negative) ng/mL Ur Barbiturates Sc reen (Negative) ng/mL Ur Phencyclidine S crn (Negative) ng/mL Ur Amphetamines Sc reen (Negative) ng/mL U Benzodiazepines Scrn (Negative) ng/mL Urine Cocaine Scre en (Negative) ng/mL U Marijuana (THC) Screen (Negative) ng/mL H. pylori IgG Anti body (Negative) 08/17/20 08/17/20 08/17/20 Range/Units 02:26 04:22 06:45 WBC (4.0-10.0) 10^3/ uL RBC (4.1-5.3) 10^6/u L Hgb (11.7-16.6) g/dL Hct (42.0-52.0) % MCV (80-94) fL MCH (28.0-34.0) pg MCHC (30.0-36.0) g/dL RDW (12.1-15.1) % Plt Count (130-400) 10^3/c mm MPV (7.4-10.4) fL Neut % (Auto) % Lymph % (Auto) % Wagoner % (Auto) % Eos % (Auto) % Baso % (Auto) % Neut # (Auto) (1.8-7.7) 10^3/u L Lymph # (Auto) (0.8-4.8) 10^3/u L Wagoner # (Auto) (0.2-0.9) 10^3/u L Eos # (Auto) (0.0-0.8) 10^3/u L Baso # (Auto) (0.0-0.1) 10^3/u L Nucleated RBC % (a uto) % Nucleated RBCs # /100WBC Sodium (136-145) mmol/L Potassium (3.5-5.1) mmol/L Chloride (98-107) mmol/L Carbon Dioxide (22-29) mmol/L Anion Gap (5-19) BUN (6-20) mg/dL Creatinine (0.7-1.2) mg/dL GFR Calculation (90-130) mL/min Glucose (65-115) mg/dL Calculated Osmolal ity (285-295) mOsm/k g Calcium (8.5-10.5) mg/dL Magnesium (1.7-2.3) mg/dL Total Bilirubin (0.15-1.2) mg/dL AST (0-40) U/L ALT (0-41) U/L Alkaline Phosphata se (40-130) IU/L Troponin T Baselin e (0-15) ng/L Troponin T 120 Min redding 8.83 (0-15) ng/L Delta Troponin T -0.17 L (0-10) ABS# Total Protein (6.6-8.7) g/dL Albumin (3.5-5.2) g/dL Globulin (1.3-4.6) g/dL Lipase (13-60) U/L Urine Color Yellow (Yellow) Urine Appearance Clear (CLEAR) Urine pH 7 (5-7) Ur Specific Gravit y 1.015 (1.005-1.030) Urine Protein Neg (Negative) Urine Glucose (UA) Norm (Normal) Urine Ketones 1+ H (Negative) Urine Blood Neg (Negative) Urine Nitrate Negative (Negative) Urine Bilirubin Neg (Negative) Urine Urobilinogen 1 H (Negative) mg/dL Ur Leukocyte Erica ase Negative (Negative) Urine Opiates Scre en (Negative) ng/mL Ur Barbiturates Sc reen (Negative) ng/mL Ur Phencyclidine S crn (Negative) ng/mL Ur Amphetamines Sc reen (Negative) ng/mL U Benzodiazepines Scrn (Negative) ng/mL Urine Cocaine Scre en (Negative) ng/mL U Marijuana (THC) Screen (Negative) ng/mL H. pylori IgG Anti body Negative (Negative) 08/17/20 Range/Units 06:45 WBC (4.0-10.0) 10^3/ uL RBC (4.1-5.3) 10^6/u L Hgb (11.7-16.6) g/dL Hct (42.0-52.0) % MCV (80-94) fL MCH (28.0-34.0) pg MCHC (30.0-36.0) g/dL RDW (12.1-15.1) % Plt Count (130-400) 10^3/c mm MPV (7.4-10.4) fL Neut % (Auto) % Lymph % (Auto) % Wagoner % (Auto) % Eos % (Auto) % Baso % (Auto) % Neut # (Auto) (1.8-7.7) 10^3/u L Lymph # (Auto) (0.8-4.8) 10^3/u L Wagoner # (Auto) (0.2-0.9) 10^3/u L Eos # (Auto) (0.0-0.8) 10^3/u L Baso # (Auto) (0.0-0.1) 10^3/u L Nucleated RBC % (a uto) % Nucleated RBCs # /100WBC Sodium (136-145) mmol/L Potassium (3.5-5.1) mmol/L Chloride (98-107) mmol/L Carbon Dioxide (22-29) mmol/L Anion Gap (5-19) BUN (6-20) mg/dL Creatinine (0.7-1.2) mg/dL GFR Calculation (90-130) mL/min Glucose (65-115) mg/dL Calculated Osmolal ity (285-295) mOsm/k g Calcium (8.5-10.5) mg/dL Magnesium (1.7-2.3) mg/dL Total Bilirubin (0.15-1.2) mg/dL AST (0-40) U/L ALT (0-41) U/L Alkaline Phosphata se (40-130) IU/L Troponin T Baselin e (0-15) ng/L Troponin T 120 Min redding (0-15) ng/L Delta Troponin T (0-10) ABS# Total Protein (6.6-8.7) g/dL Albumin (3.5-5.2) g/dL Globulin (1.3-4.6) g/dL Lipase (13-60) U/L Urine Color (Yellow) Urine Appearance (CLEAR) Urine pH (5-7) Ur Specific Gravit y (1.005-1.030) Urine Protein (Negative) Urine Glucose (UA) (Normal) Urine Ketones (Negative) Urine Blood (Negative) Urine Nitrate (Negative) Urine Bilirubin (Negative) Urine Urobilinogen (Negative) mg/dL Ur Leukocyte Erica ase (Negative) Urine Opiates Scre en Negative (Negative) ng/mL Ur Barbiturates Sc reen Negative (Negative) ng/mL Ur Phencyclidine S crn Negative (Negative) ng/mL Ur Amphetamines Sc reen Negative (Negative) ng/mL U Benzodiazepines Scrn Negative (Negative) ng/mL Urine Cocaine Scre en Negative (Negative) ng/mL U Marijuana (THC) Screen Positive H (Negative) ng/mL H. pylori IgG Anti body (Negative) Discharge Plan Discharge Patient Disposition: Home Clinical Impression: Cannabinoid hyperemesis syndrome Condition: Stable Prescriptions: New promethazine 25 mg tablet 25 mg PO Q6H PRN (Reason: nausea and vomiting) Qty: 20 RF: 0 No Action acetaminophen 325 mg capsule 650 mg PO ONCE Qty: 2 RF: 0 Ativan 0.5 mg tablet 0.5 mg PO Q8H PRN (Reason: nausea and vomiting) Qty: 10 RF: 0 Reglan 10 mg tablet 10 mg PO Q6H PRN (Reason: nausea and vomiting) Qty: 20 RF: 0 ondansetron 4 mg tablet,disintegrating 4 mg PO Q6H PRN (Reason: nausea and vomiting) Qty: 14 RF: 0 Discharge Orders: Discharge Order (Routine); Ordered 08/17/20 Ordered By: Jun Saravia Referrals: Mian Hendrickson DO [Primary Care Provider] - Discharge Diet: Clear Liquid Discharge Activity: Increase activity as tolerated Sign Out Sign Out Data: Patient Sign Out occurred on 08/17/20 at 07:19. Patient's care was discussed, and care was transferred from to Jun Saravia DO. Coding Level of Care Code ED Certified Social Workers In Health Care for Chg Fwd Exam Comprehensive
[2020-08-17 02:51] LABS: Alanine Aminotransferase 30 U/L (0-41); Albumin Level 4.5 g/dL (3.5-5.2); Alkaline Phosphatase 110 IU/L (40-130); Aspartate Amino Transferase 32 U/L (0-40); Blood Urea Nitrogen 16 mg/dL (6-20); Calcium 9.8 mg/dL (8.5-10.5); Carbon Dioxide 22 mmol/L (22-29); Chloride 105 mmol/L (98-107); Globulin 2.5 g/dL (1.3-4.6); Glomerular Filtration Rate 73.1 mL/min (90-130); Glucose 132 mg/dL (65-115); Lipase 43 U/L (13-60); Magnesium 2.3 mg/dL (1.7-2.3); Osmolality Calculated 297 mOsm/kg (285-295); Sodium 142 mmol/L (136-145); Total Bilirubin 0.4 mg/dL (0.15-1.2)
[2020-08-17 03:03] LABS: Anion Gap 18.7 (5-19); Potassium 3.7 mmol/L (3.5-5.1)
--- NOTE | 2020-08-17 03:08 | ECG_ITS ---
[facility] Test Date: 2020-08-17 Pat Name: Isauro Chacon Department: Room: Gender: Male [employer]: : 1975 Requested By: Zainab Rodriguez Order Number: [id number] Karuna MD: Tania Lucio M.D. Measurements Intervals Pope Rate: 66 P: 69 SC: 159 QRS: 74 QRSD: 92 T: 57 QT: 396 QTc: 415 Interpretive Statements SINUS RHYTHM WITH SINUS ARRHYTHMIA INTERPRETATION BASED ON A DEFAULT AGE OF 40 YEARS No previous ECG available for comparison Electronically Signed On 08-17-2020 21:34:49 CDT by Tania Lucio M.D. [id number]
[2020-08-17 03:43] LABS: Troponin(5th) Baseline 9 ng/L (0-15)
[2020-08-17] MEDS: ketorolac 30 mg/mL INJ 10 MG IVP (03:50)
[2020-08-17 03:59] LABS: H. Pylori IgG Antibody Negative (Negative)
[2020-08-17] MEDS: pantoprazole 40 mg SDV 80 MG IVP (04:02)
[2020-08-17] MEDS: atropine 0.1 mg/mL Syr 10 mL 0.5 MG IVP (04:04)
[2020-08-17] MEDS: ondansetron 2 mg/ML SDV 2 mL 4 MG IVP (05:00)
[2020-08-17 05:03] LABS: Troponin 5 2HR 8.83 ng/L (0-15)
[2020-08-17 05:07] LABS: Troponin 5 2HR Delta -0.17 ABS# (0-10)
[2020-08-17 06:59] LABS: Add Urine Microscopic? NO
[2020-08-17 07:22] LABS: Bilirubin Urine Neg (Negative); Blood Urine Neg (Negative); Glucose Urine UA Norm (Normal); Ketones Urine 1+ (Negative); Leukocyte Esterase Urine Negative (Negative); Nitrate Urine Negative (Negative); Protein Urine Neg (Negative); Specific Gravity, Urine 1.015 (1.005-1.030); Urine Appearance Clear (CLEAR); Urine Color Yellow (Yellow); Urobilinogen Urine 1 mg/dL (Negative); pH Urine 7 (5-7)
[2020-08-17 07:29] LABS: Amphetamines Screen Urine Negative (Negative); Barbiturates Screen Urine Negative (Negative); Benzodiazepines Screen Urine Negative (Negative); Cocaine Screen Urine Negative (Negative); Opiate Screen Urine Negative (Negative); PCP Screen Urine Negative (Negative); THC Screen Urine Positive (Negative)
== END 2020-08-17 08:06 | disposition home or self-care (01) ==
PROVIDERS: Emergency Medicine; Emergency Provider Family Medicine; PCP Emergency Medicine Emergency Medical Services
DX: R11.10 Vomiting, unspecified (principal); F12.90 Cannabis use, unspecified, uncomplicated
CPT/HCPCS: 12345; 80053; 80306; 81003; 83690; 83735; 84484; 85025; 86677; 93005; 96361; 96372; 96374; 96375; 96376; 99284; C9113; J0131; J0461; J1200; J1630; J1885; J2405; J7030

== ENCOUNTER 2020-08-25 12:44 | Outpatient (CLI) | payer OTHER, SELFPAY ==
--- NOTE | 2020-08-25 12:50 | XR_ITS ---
WS: [id number] LUMBAR SPINE: 3 VIEWS TECHNIQUE: AP, lateral and L5-S1 spot. HISTORY: LOW BACK PAIN COMPARISON: 05/01/2020 Extensive posterior lumbar fusion hardware from L2 to L4. Vertebral height and pedicle screws are int act. 50% compression fracture of L3 is stable. Prior vertebroplasty at L1 with mild L1 compression fr acture. 2 mm retrolisthesis of L3 and L4. Multilevel degenerative disc disease. Prior cholecystectomy. SI joints are symmetric bilaterally. No soft tissue abnormalities. XR/XR lumbar spine 2-3V* [id number] IMPRESSION: 1. Posterior lumbar fusion hardware from L2 to L4 unchanged. No lucency around the screws. 2. Vertebroplasty at L1 and stable 20% compression fracture. 3. 50% stable compression fracture at L3.
== END 2020-08-25 12:45 | disposition home or self-care (01) ==
LOC: RAD 12:46
PROVIDERS: PCP Emergency Medicine Emergency Medical Services; Visit Provider Physician Assistant
DX: M43.26 Fusion of spine, lumbar region (principal); S32.030A Wedge compression fracture of third lumbar vertebra, initial encounter for closed fracture; S32.010A Wedge compression fracture of first lumbar vertebra, initial encounter for closed fracture; X58.XXXA Exposure to other specified factors, initial encounter
CPT/HCPCS: 72100

== ENCOUNTER → 2020-10-13 13:20 | Outpatient (BNVA) | payer OTHER, SELFPAY | PROVIDERS: PCP Emergency Medicine Emergency Medical Services; Visit Provider Surgery | DX: Z20.828 Contact with and (suspected) exposure to other viral communicable diseases (principal) | CPT/HCPCS: 87635 ==

== ENCOUNTER 2020-10-19 10:21 | Day surgery (SDC) | payer OTHER, SELFPAY ==
[2020-10-17 12:31] VITALS: BMI 25.5
--- NOTE | 2020-10-19 10:40 | W.PM.OPSUD ---
Surgery/Procedure H&P Update DATE OF PROCEDURE: October 19, 2020 DATE H&P PERFORMED: 10/09/20 H&P UPDATE INFORMATION: I have reviewed H&P completed within last 30 days, I have examined patient prior to procedure and No changes to prior documentation PREOP DIAGNOSIS: upper gi symptoms PLANNED PROCEDURE: Operation Date: 10/19/20 11:15 Proposed Procedures p EGD 73531 r11.15(Not Applicable) - Enmanuel Arzola MD
[2020-10-19 10:48] VITALS: BP 122/70; PULSE 60; RESP 18; TEMP 36.6; O2SAT 100
--- NOTE | 2020-10-19 10:54 | ANES.PREANE2 ---
Pre-Anesthetic Assessment Pre-Anesthetic Assessment: Height/Weight: Height 1.93 m Weight 95.254 kg Temp Pulse Resp BP Pulse Ox 97.9 F 60 18 122/70 100 10/19/20 10:48 10/19/20 10:48 10/19/20 10:48 10/19/20 10:48 10/19/20 10:48 Preop Diagnosis: upper gi symptoms Proposed Procedure: Operation Date: 10/19/20 11:15 Proposed Procedures p EGD 24467 r11.15(Not Applicable) - Enmanuel Arzola MD Familial anesthetic complications: Woke up during his ulnar nerve and appendix surgery - states he also is combative when he wakes up Was Beta Christiano taken within 24 hours: N/A Last intake: Intake Last Liquid Date 10/18/20 Last Liquid Time 20:00 Last Solid Date 10/18/20 Last Solid Time 20:00 Social: Social History: No alcohol and No tobacco Comment: Daily marijuana use Exam: Pre-Anes Outpt Exam: alert, oriented x 3, clear to auscultation bilaterally and regular rate & rhythm Airway: Cervical ROM: WNL MP: 3 Dentition: Full Anesthetic Plan: ASA status: 2 Anesthesia: MAC Risk of > 500 ml blood loss (7ml/kg in children): No PFSH Anesthesia PFSH: Medical History Cyclic vomiting syndrome Surgical History History of back surgery History of carpal tunnel surgery of left wrist History of cholecystectomy S/P appendectomy Family History Denies family history of Anesthesia complication Bleeding disorder Social History Smoking and tobacco status: never smoked Alcohol intake: never Data Anesthesia Cardiac Studies: No Data to Display
[2020-10-19] MEDS: sodium chloride 0.9% 1,000 ML 30 ML IV (11:10)
[2020-10-19 11:33] VITALS: BP 97/65; PULSE 58; RESP 16; TEMP 36.4; O2SAT 98
[2020-10-19 11:50] VITALS: BP 108/69; PULSE 67; RESP 18; TEMP 36.4; O2SAT 100
== END 2020-10-19 12:01 | disposition home or self-care (01) ==
PROVIDERS: PCP Emergency Medicine Emergency Medical Services; Visit Provider Surgery
PROC: 0DJ08ZZ Inspection of Upper Intestinal Tract, Via Natural or Artificial Opening Endoscopic (ICD-10-PCS; CPT 43235; principal; 2020-10-19 11:15)
DX: R11.15 Cyclical vomiting syndrome unrelated to migraine (principal); K29.70 Gastritis, unspecified, without bleeding
CPT/HCPCS: 12345; 43239; 88305; J2704; J3490; J7030

== ENCOUNTER 2020-11-20 11:55 | Outpatient (CLI) | payer OTHER, SELFPAY ==
--- NOTE | 2020-11-20 12:02 | XR_ITS ---
WS: [id number] LUMBAR SPINE: 3 VIEWS TECHNIQUE: AP, lateral and L5-S1 spot. HISTORY: LUMBAR RADICULOPATHY COMPARISON: 08/25/2020. Revision of the posterior fusion hardware since 08/25/2020. There is posterior fusion extending from L2 to L4. L3 50% compression fractures again identified. Partial corpectomy of L3 with a cage now pre sent. Additional plate and fixation screws extending on the LEFT from L2 to L4. Transverse cortical s crews at L2 and L4. Vertebroplasty changes at L1. SI joints are symmetric bilaterally. No soft tissue abnormalities. Prior cholecystectomy. XR/XR lumbar spine 2-3V* [id number] IMPRESSION: 1. Interval revision of the posterior lumbar fusion since 08/25/2020. 2. Fusion hardware and new metallic cage at the L3 level. New plate and screw fixation with the vertebral bodies remaining in normal position and alignment. 3. Prior vertebroplasty at L1.
== END 2020-11-20 11:56 | disposition home or self-care (01) ==
LOC: RADWPI 12:01
PROVIDERS: PCP Emergency Medicine Emergency Medical Services; Visit Provider Neurological Surgery
DX: M54.16 Radiculopathy, lumbar region (principal)
CPT/HCPCS: 72100

== ENCOUNTER 2021-03-29 08:38 | Emergency (ER) | payer OTHER, SELFPAY ==
[2021-03-29] VITALS (8 sets, daily range): BP systolic 151–179; BP diastolic 84–107; PULSE 44–62; RESP 18–24; TEMP 36.2–37.1; O2SAT 96–98; BMI 22.5
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
[2021-03-29 09:17] LABS: Basophils # 0.1 10^3/uL (0.0-0.1); Basophils % 0.9 %; Eosinophils # 0.1 10^3/uL (0.0-0.8); Eosinophils % 1.7 %; Hematocrit 44.3 % (42.0-52.0); Hemoglobin 14.8 g/dL (11.7-16.6); Lymphocytes # 1.1 10^3/uL (0.8-4.8); Lymphocytes % 19.7 %; Mean Corpuscular HGB Conc 33.4 g/dL (30.0-36.0); Mean Corpuscular Hemoglobin 31.4 pg (28.0-34.0); Mean Corpuscular Volume 94.1 fL (80-94); Mean Platelet Volume 10.1 fL (7.4-10.4); Monocytes # 0.3 10^3/uL (0.2-0.9); Monocytes % 6.3 %; Neutrophils # 3.86 10^3/uL (1.8-7.7); Nucleated Red Blood Cells % 0 %; Platelet Count 193 10^3/cmm (130-400); Red Blood Count 4.71 10^6/uL (4.1-5.3); Red Cell Distribution Width 12.9 % (12.1-15.1); White Blood Count 5.4 10^3/uL (4.0-10.0)
[2021-03-29] MEDS: ondansetron 2 mg/ML SDV 2 mL 4 MG IVP (09:20)
[2021-03-29] MEDS: morphine 4 mg/mL SDV 1 mL IVP ×2 (09:20→10:51)
[2021-03-29] MEDS: LORazepam 2 mg/mL INJ 1 mL IVP ×2 (09:20→10:50)
[2021-03-29] MEDS: sodium chloride 0.9% 1,000 ML 999 ML IV ×2 (09:21→10:23)
[2021-03-29 09:37] LABS: Alanine Aminotransferase 18 U/L (0-41); Albumin Level 4.6 g/dL (3.5-5.2); Alkaline Phosphatase 83 IU/L (40-130); Anion Gap 17.6 (5-19); Aspartate Amino Transferase 23 U/L (0-40); Blood Urea Nitrogen 14 mg/dL (6-20); Calcium 9.1 mg/dL (8.5-10.5); Carbon Dioxide 20 mmol/L (22-29); Chloride 108 mmol/L (98-107); Creatine Phosphokinase 146 U/L (39-308); Globulin 2.2 g/dL (1.3-4.6); Glucose 153 mg/dL (65-115); Lipase 21 U/L (13-60); Magnesium 1.9 mg/dL (1.7-2.3); Osmolality Calculated 298 mOsm/kg (285-295); Potassium 3.6 mmol/L (3.5-5.1); Sodium 142 mmol/L (136-145); Total Bilirubin 0.9 mg/dL (0.15-1.2); Total Protein 6.8 g/dL (6.6-8.7)
== END 2021-03-29 12:08 | disposition home or self-care (01) ==
PROVIDERS: Emergency Provider Family Medicine; PCP Emergency Medicine Emergency Medical Services
DX: R11.15 Cyclical vomiting syndrome unrelated to migraine (principal)
CPT/HCPCS: 80053; 82550; 83690; 83735; 85025; 96361; 96374; 96375; 99284; J2060; J2270; J2405; J7030

== ENCOUNTER 2021-08-14 08:14 | Emergency (ER) | payer OTHER, SELFPAY ==
[2021-08-14 08:25] VITALS: BP 156/116; PULSE 0; PULSE 95; RESP 21; TEMP 36.1; O2SAT 92; BMI 28.1
[2021-08-14] MEDS: haloperidol inj 5 mg/mL INJ 1 mL IVP (08:52)
[2021-08-14] MEDS: LORazepam 2 mg/mL INJ 1 mL IVP (08:53)
[2021-08-14] MEDS: sodium chloride 0.9% 1,000 ML 999 ML IV (08:53)
--- NOTE | 2021-08-14 08:55 | ED_ITS ---
HPI - Nausea/Vomiting/Diarrhea General: Chief complaint: Nausea/Vomiting/Diarrhea Stated complaint: N/V; RAN OUT OF MEDS FOR THIS CONDITION Time Seen by Provider: 08/14/21 08:22 History of Present Illness: HPI Narrative: 45-year-old male presents with persistent nausea vomiting. Patient has been self inducing vomiting since he arrived in the department. Patient reports he was on a medicine for his stomach although I do not see anything listed on his medication list suspect it was a PPI he states that he stopped taking it when he ran out and on so no nausea and vomiting started. Patient has had multiple previous admissions to the emergency room for hyperemesis cannabinoid syndrome. MD elicited complaint: nausea and vomiting Onset (ago): hour(s) Description of vomiting: bilious Associated nausea: Yes Associated abdominal pain: Yes Location of pain: Diffuse Radiation: diffuse Pain consistency: constant Quality: cramping and aching Exacerbating factors: none Relieving factors: none Associated symtoms: Reports nausea; Denies altered mental status, anxiety, bloating, change in vision, chest pain, cough, diaphoresis, decreased urine output, dizziness, dysuria, epistaxis, fatigue, fecal incontinence, fevers/chills, headache(s), anorexia, malaise, myalgias, numbness, palpitations, rash, short of breath, syncope, tenesmus, tinnitus or weakness Review of Systems Const: Denies: fatigue, malaise or diaphoresis Eyes: Denies: change in vision ENMT: Denies: tinnitus or epistaxis Card: Denies: chest pain, palpitations or syncope Resp: Denies: dyspnea, productive cough or non-productive cough GI: Reports: nausea; Denies: bloating or fecal incontinence : Denies: dysuria Skin/Breast: Denies: rash or pruritus Neuro: Denies: headache(s) or dizziness Psych: Denies: anxiety PFSH ED PFSH: Medical History Cyclic vomiting syndrome Surgical History H/O esophagogastroduodenoscopy (10/19/20) History of back surgery History of carpal tunnel surgery of left wrist History of cholecystectomy S/P appendectomy Family History Denies family history of Anesthesia complication Bleeding disorder Social History Smoking and tobacco status: former smoker Alcohol intake: never History of recent travel: No Physical Exam Const: COMMON NORMALS: no acute distress EXAM LIMITATIONS: no altered mental status GENERAL APPEARANCE: cooperative and comfortable ORIENTATION/CONSCIOUSNESS: Yes awake, Yes oriented to person, Yes oriented to place and Yes oriented to time HENMT: COMMON NORMALS: normocephalic, atraumatic and hearing grossly normal bilaterally HEAD & SCALP: normocephalic and atraumatic Resp: COMMON NORMALS: normal respiratory effort, No retractions, No use of accessory muscles and clear to auscultation bilaterally AUSCULTATION: clear to auscultation bilaterally Cardio: COMMON NORMALS: regular rate, regular rhythm and No murmurs present (Cardio) RATE: regular rate RHYTHM: regular rhythm GI: COMMON NORMALS: Soft to palpation and No hepatosplenomegaly present AUSCULTATION: Yes normoactive bowel sounds PALPATION: Yes Soft to palpation, Yes Tenderness to palpation present (GI) (diffuse), No Guarding due to palpation present (GI) and Yes No hepatosplenomegaly present Extremity: COMMON NORMALS: normal to inspection, capillary refill normal, no clubbing, cyanosis or edema, no calf tenderness and no pedal edema Neuro: SENSORIUM/ORIENTATION: Yes oriented to person, Yes oriented to place and Yes oriented to time Skin: COMMON NORMALS: no rashes or lesions noted GENERAL SKIN EXAM: no rashes or lesions noted Course Vital Signs: Vital signs: Vital Signs Temperature 97 F L 08/14/21 08:25 Pulse Rate 70 08/14/21 09:01 Respiratory Rate 21 H 08/14/21 08:25 Blood Pressure 156/116 08/14/21 08:25 Pulse Oximetry 98 08/14/21 09:01 MDM - Nausea/Vomiting/Diarrhea MDM Narrative: Medical decision making narrative: 45-year-old male presents emergency room once again with recurrent vomiting. He was inducing vomiting multiple times later is here. I did observe the patient while he was resting after he got medications he had not thrown up for over an hour and went into talk to him he put his finger in his throat and began inducing vomiting again. Discouraged him from doing this. He is stable now we will discharge him home he is gotten 2 L of fluids refilled his pantoprazole have him follow-up with his primary care doctor. Also encouraged him to stop the use of medical marijuana Lab Data: Labs: Lab Results 08/14/21 08/14/21 08:45 08:45 WBC 8.4 10^3/uL 10^3/ uL (4.0-10.0) RBC 5.14 10^6/uL 10^6 /uL (4.1-5.3) Hgb 15.9 g/dL g/dL (11.7-16.6) Hct 48.0 % % (42.0-52.0) MCV 93.4 fl fl (80-94) MCH 30.9 pg pg (28.0-34.0) MCHC 33.1 g/dL g/dL (30.0-36.0) RDW 12.4 % % (12.1-15.1) Plt Count 213 10^3/cmm 10^3 /cmm (130-400) MPV 10.0 fL fL (7.4-10.4) Neut % (Auto) 69.2 % % Lymph % (Auto) 21.8 % % [place] % (Auto) 6.1 % % Eos % (Auto) 1.9 % % Baso % (Auto) 0.6 % % Neut # (Auto) 5.81 10^3/uL 10^3 /uL (1.8-7.7) Lymph # (Auto) 1.8 10^3/uL 10^3/ uL (0.8-4.8) [place] # (Auto) 0.5 10^3/uL 10^3/ uL (0.2-0.9) Eos # (Auto) 0.2 10^3/uL 10^3/ uL (0.0-0.8) Baso # (Auto) 0.1 10^3/uL 10^3/ uL (0.0-0.1) Nucleated RBC % (a uto) 0 % % Nucleated RBCs # 0.0 /100WBC /100W BC Sodium 140 mmol/L mmol/L (136-145) Potassium 3.7 mmol/L mmol/L (3.5-5.1) Chloride 104 mmol/L mmol/L (98-107) Carbon Dioxide 22 mmol/L mmol/L (22-29) Anion Gap 17.7 (5-19) BUN 25 mg/dL H mg/dL (6-20) Creatinine 1.0 mg/dL mg/dL (0.7-1.2) GFR Calculation 81.2 mL/min L mL/ min (90-130) Glucose 140 mg/dL H mg/dL (65-115) Calculated Osmolal ity 297 mOsm/kg H mOs m/kg (285-295) Calcium 9.8 mg/dL mg/dL (8.5-10.5) Total Bilirubin 0.8 mg/dL mg/dL (0.15-1.2) AST 23 U/L U/L (0-40) ALT 18 U/L U/L (0-41) Alkaline Phosphata se 99 IU/L IU/L (40-130) Total Protein 7.9 g/dL g/dL (6.6-8.7) Albumin 4.8 g/dL g/dL (3.5-5.2) Globulin 3.1 g/dL g/dL (1.3-4.6) Discharge Plan Discharge Patient Disposition: Home Clinical Impression: Cyclic vomiting syndrome Condition: Stable Prescriptions: New Protonix 40 mg tablet,delayed release (DR/EC) 40 mg PO DAILY 28 Days RF: 0 promethazine 25 mg tablet 25 mg PO Q6H PRN (Reason: nausea and vomiting) Qty: 14 RF: 0 No Action adapalene 0.3 % gel 1 applic topical DAILY Qty: 45 RF: 3 doxycycline hyclate 100 mg capsule 100 mg PO DAILY Qty: 30 RF: 2 triamcinolone acetonide 0.1 % ointment 1 applic topical BID Qty: 80 RF: 0 clindamycin phosphate 1 % lotion 1 applic topical DAILY Qty: 60 RF: 3 Discharge Orders: Discharge ED (Routine); Ordered 08/14/21 Ordered By: Jun Saravia Referrals: Mian Hendrickson, [Primary Care Provider] - Discharge Diet: Clear Liquid Discharge Activity: Increase activity as tolerated Patient Instructions: Opioid Safety Activity Restrictions/Additional Instructions: Do not induce vomiting by self gagging. Clear liquid diet for 24 to 48 hours and advance as tolerated. Recommend stopping all use of all marijuana-based products Coding Level of Care Code ED Fiberglass Grinder for Chg Fwd Exam Detailed
[2021-08-14 09:00] LABS: Basophils # 0.1 10^3/uL (0.0-0.1); Basophils % 0.6 %; Eosinophils # 0.2 10^3/uL (0.0-0.8); Eosinophils % 1.9 %; Hemoglobin 15.9 g/dL (11.7-16.6); Lymphocytes # 1.8 10^3/uL (0.8-4.8); Lymphocytes % 21.8 %; Mean Corpuscular HGB Conc 33.1 g/dL (30.0-36.0); Mean Corpuscular Hemoglobin 30.9 pg (28.0-34.0); Mean Corpuscular Volume 93.4 fl (80-94); Monocytes # 0.5 10^3/uL (0.2-0.9); Monocytes % 6.1 %; Neutrophils # 5.81 10^3/uL (1.8-7.7); Neutrophils % 69.2 %; Nucleated Red Blood Cells % 0 %; Platelet Count 213 10^3/cmm (130-400); Red Blood Count 5.14 10^6/uL (4.1-5.3); Red Cell Distribution Width 12.4 % (12.1-15.1); White Blood Count 8.4 10^3/uL (4.0-10.0)
[2021-08-14 09:01] VITALS: PULSE 70; O2SAT 98
[2021-08-14 09:39] LABS: Alanine Aminotransferase 18 U/L (0-41); Albumin Level 4.8 g/dL (3.5-5.2); Alkaline Phosphatase 99 IU/L (40-130); Anion Gap 17.7 (5-19); Aspartate Amino Transferase 23 U/L (0-40); Blood Urea Nitrogen 25 mg/dL (6-20); Calcium 9.8 mg/dL (8.5-10.5); Carbon Dioxide 22 mmol/L (22-29); Chloride 104 mmol/L (98-107); Globulin 3.1 g/dL (1.3-4.6); Glomerular Filtration Rate 81.2 mL/min (90-130); Glucose 140 mg/dL (65-115); Osmolality Calculated 297 mOsm/kg (285-295); Potassium 3.7 mmol/L (3.5-5.1); Sodium 140 mmol/L (136-145); Total Bilirubin 0.8 mg/dL (0.15-1.2); Total Protein 7.9 g/dL (6.6-8.7)
[2021-08-14] MEDS: pantoprazole 40 mg SDV IVP (10:46)
== END 2021-08-14 11:12 | disposition home or self-care (01) ==
PROVIDERS: Emergency Provider Family Medicine; PCP Emergency Medicine Emergency Medical Services
DX: R11.15 Cyclical vomiting syndrome unrelated to migraine (principal); Z87.891 Personal history of nicotine dependence
CPT/HCPCS: 80053; 85025; 96374; 96375; 99283; C9113; J1630; J2060; J7030

== ENCOUNTER 2021-09-24 18:08 | Emergency (ER) | payer OTHER, SELFPAY ==
[2021-09-24 18:51] VITALS: BP 184/96; PULSE 82; RESP 22; TEMP 36.5; O2SAT 100; BMI 26.7
[2021-09-24 21:04] VITALS: BP 137/93; PULSE 77; RESP 26; TEMP 36.4; O2SAT 96
[2021-09-24 22:03] LABS: Basophils % 0.3 %; Eosinophils % 0.1 %; Hematocrit 44.9 % (42.0-52.0); Lymphocytes # 0.6 10^3/uL (0.8-4.8); Lymphocytes % 4.3 %; Mean Corpuscular HGB Conc 33.4 g/dL (30.0-36.0); Mean Corpuscular Hemoglobin 31.1 pg (28.0-34.0); Mean Corpuscular Volume 93.2 fl (80-94); Mean Platelet Volume 10.2 fL (7.4-10.4); Monocytes # 0.5 10^3/uL (0.2-0.9); Monocytes % 3.2 %; Neutrophils # 13.67 10^3/uL (1.8-7.7); Neutrophils % 91.7 %; Nucleated Red Blood Cells % 0 %; Platelet Count 204 10^3/cmm (130-400); Red Blood Count 4.82 10^6/uL (4.1-5.3); Red Cell Distribution Width 12.1 % (12.1-15.1); White Blood Count 14.9 10^3/uL (4.0-10.0)
[2021-09-24 22:26] LABS: Alanine Aminotransferase 19 U/L (0-41); Albumin Level 4.6 g/dL (3.5-5.2); Alkaline Phosphatase 102 IU/L (40-130); Anion Gap 20.4 (5-19); Aspartate Amino Transferase 23 U/L (0-40); Blood Urea Nitrogen 13 mg/dL (6-20); Calcium 9.6 mg/dL (8.5-10.5); Carbon Dioxide 20 mmol/L (22-29); Chloride 103 mmol/L (98-107); Creatinine Clr Calc Pharmacy 102.2178; Globulin 3.3 g/dL (1.3-4.6); Glomerular Filtration Rate 65.8 mL/min (90-130); Glucose 157 mg/dL (65-115); Lipase 17 U/L (13-60); Osmolality Calculated 291 mOsm/kg (285-295); Potassium 4.4 mmol/L (3.5-5.1); Sodium 139 mmol/L (136-145); Total Bilirubin 0.8 mg/dL (0.15-1.2); Total Protein 7.9 g/dL (6.6-8.7)
== END 2021-09-25 00:07 | disposition left against medical advice (07) ==
LOC: ER 18:35
PROVIDERS: Emergency Medicine; PCP Emergency Medicine Emergency Medical Services
DX: Z53.21 Procedure and treatment not carried out due to patient leaving prior to being seen by health care provider (principal)
CPT/HCPCS: 36415; 80053; 83690; 85025; 99283

== ENCOUNTER 2022-08-22 06:50 | Outpatient (CLI) | payer OTHER, SELFPAY ==
--- NOTE | 2022-08-22 | US_ITS ---
WS: [id number] ULTRASOUND SOFT TISSUES posterior LEFT lower extremity. HISTORY: LEFT CALF ECCHYMOSIS COMPARISON: None available. TECHNIQUE: 2-D and color Doppler imaging is submitted. Ultrasound directed to the area of clinical concern. No soft tissue mass is identified. No increased vascularity. Subcutaneous soft tissue is normal. US/US soft tissue/extremity [id number] IMPRESSION: Negative ultrasound directed to the posterior LEFT lower extremity.
== END 2022-08-22 06:51 | disposition home or self-care (01) ==
LOC: RAD 06:50
PROVIDERS: PCP Emergency Medicine Emergency Medical Services; Visit Provider Emergency Medicine Emergency Medical Services
DX: R58 Hemorrhage, not elsewhere classified (principal)
CPT/HCPCS: 76882

== ENCOUNTER → 2023-01-27 13:37 | Outpatient (BNVA) | payer OTHER, SELFPAY | PROVIDERS: PCP Emergency Medicine Emergency Medical Services; Referring Provider Emergency Medicine Emergency Medical Services; Visit Provider Student in an Organized Health Care Education/Training Program | DX: S43.432A Superior glenoid labrum lesion of left shoulder, initial encounter (principal); M75.22 Bicipital tendinitis, left shoulder; X58.XXXA Exposure to other specified factors, initial encounter | CPT/HCPCS: 73030; 99203 ==

== ENCOUNTER 2023-03-05 13:49 | Outpatient (CLI) | payer OTHER, SELFPAY ==
--- NOTE | 2023-03-05 13:45 | MR_ITS ---
WS: [id number] MRI LEFT SHOULDER ARTHROGRAM, pre and postcontrast. HISTORY: Chronic pain and loss of strength. COMPARISON: Radiograph 01/27/2023 TECHNIQUE: Pre and postcontrast imaging. Gadolinium mixture was injected under fluoroscopy. Coronal T 1 fat sat, sagittal T2 fat sat, coronal T2 fat sat, axial proton density, axial T1 nonfat saturation and ABER sagittal T1 fat sat views are submitted. Prearthrogram: Advanced AC joint arthritis. Hypertrophic osteophytes with joint space narrowing. Pedro a within the clavicle and acromion. There is a small amount of fluid in the subacromial bursa. There is mild encroachment upon the myotendinous insertion. There is also a small amount of edema extending into the rotator cuff interval from the AC joint arthropathy. No os acromion. Biceps tendon remains in normal position. No rotator cuff tear is identified. Mild tendinopathy in the distal supraspinatus tendon. No muscle a trophy or edema. Mild edema in the coracohumeral ligament. There is advanced degenerative changes involving the glenoid. Multiple areas of cystic degeneration w ith loss of the overlying cartilage. Most significant changes are in the posterior inferior glenoid. Post arthrogram: No rotator cuff tear. Significant abnormality involving the glenoid and the labrum. There is contrast coating underneath the anterior superior labrum. There appears to be delamination a s contrast undercuts the labrum inferiorly. There is marked abnormal signal involving the posterior l abrum with there is loss of the cortex. Contrast extends into the labral and glenoid filling the cyst ic spaces. Biceps tendon remains in normal position. Rotator cuff interval is normal. MR/MR shoulder LT wo/w con [id number] IMPRESSION: 1. Marked abnormality involving the glenoid and nearly entire labrum. There is a large area of subchondral cystic changes and loss of cartilage extending ove r a length of 4 cm in the posterior lateral glenoid. There is diffuse involveme nt of the labrum. Extensive labral abnormalities with delamination. 2. No rotator cuff tear. 3. Advanced AC joint arthritis with encroachment upon the myotendinous inserti on supraspinatus. Mild tendinopathy distal supraspinatus tendon. 4. Mild edema coracohumeral ligament.
--- NOTE | 2023-03-05 13:59 | IR_ITS ---
WS: [id number] LEFT SHOULDER ARTHROGRAM UNDER FLUOROSCOPY. PRIOR TO MRI EVALUATION. HISTORY: PAIN COMPARISON: None available. FLUOROSCOPY TIME: 0min [id number] # of spot films: 4 Procedure, risks and complications were explained to the patient. Consent has been obtained. Under fluoroscopic guidance the skin is marked over the medial superior third of the humeral head, cl eansed with ChloraPrep and anesthetized with lidocaine. 22-gauge spinal needle is inserted to the cor tomás of the humeral head. Test injection with Omnipaque reveals the needle is appropriately positioned in the joint. A mixture of 10 cc sterile saline, 5 cc Omnipaque and 0.1 mmol gadolinium are injected under fluoroscopic guidance. Patient tolerated the joint distention well. No complications. IR/IR arthrogram shoulderLT [id number] IMPRESSION: Uncomplicated LEFT shoulder joint injection prior to MRI.
== END 2023-03-05 13:50 | disposition home or self-care (01) ==
LOC: RAD 13:53
PROVIDERS: PCP Emergency Medicine Emergency Medical Services; Visit Provider Student in an Organized Health Care Education/Training Program
DX: M25.812 Other specified joint disorders, left shoulder (principal); M25.512 Pain in left shoulder; M19.012 Primary osteoarthritis, left shoulder
CPT/HCPCS: 23350; 73223; 77002; Q9966

== ENCOUNTER → 2023-03-17 14:57 | Outpatient (BNVA) | payer OTHER, SELFPAY | PROVIDERS: PCP Emergency Medicine Emergency Medical Services; Visit Provider Student in an Organized Health Care Education/Training Program | DX: M75.22 Bicipital tendinitis, left shoulder (principal); S43.432A Superior glenoid labrum lesion of left shoulder, initial encounter; X58.XXXA Exposure to other specified factors, initial encounter; M19.012 Primary osteoarthritis, left shoulder | CPT/HCPCS: 99214 ==

== ENCOUNTER 2023-04-23 11:00 | Day surgery (SDC) | payer OTHER, SELFPAY ==
[2023-04-22 07:58] VITALS: BMI 30.4
[2023-04-23] VITALS (10 sets, daily range): BP systolic 117–159; BP diastolic 73–106; PULSE 59–81; RESP 14–23; TEMP 36.1–36.9; O2SAT 98–100
[2023-04-23] MEDS: sodium chloride 0.9% 1,000 ML 30 ML IV (11:25)
[2023-04-23] MEDS: ketorolac 30 mg/mL INJ IVP (11:28)
[2023-04-23] MEDS: acetaminophen 1,000 MG/100 ML PIGGYBACK 400 MG IV (11:33)
--- NOTE | 2023-04-23 11:41 | P.HP_ITS ---
Same Day Surgery H&P Indication for Procedure/HPI DATE OF PROCEDURE: April 23, 2023 CHIEF COMPLAINT/INDICATIONFOR SURGICAL PROCEDURE: No change in HPI since previous office visit on 03/17/2023. Left shoulder pain with left shoulder labral tear AC joint arthritis and subacromial impingement. We talked about his treatment options as far as nonoperative and operative intervention at this point time through shared decision making he elects to proceed and presents today in the preoperative holding area with plan for surgery of a left shoulder diagnostic and surgical with labral repair, about possible biceps tenodesis, subacromial decompression and AC joint resection. All questions answered he understands the risk benefits complication alternatives with surgery and agrees to proceed. All questions answered. Patient understands the ins and outs of procedure as well as the postoperative recovery process PREOP DIAGNOSIS: Left shoulder labral tear, AC joint arthritis, subacromial impingement PLANNED PROCEDURE: Operation Date: 04/23/23 12:35 Proposed Procedures p Left shoulder diagnostic and surgical arthroscopy [id number] with labral repair,biceps tenodesis,subacromial decompression,and AC joint resection:[id number],M75.00,S43.439A,M19.019(Left) - Edmundo Valdes DO s ac joint resection:75658,M75.22,S43.439A(Left) - Edmundo Valdes DO Medications/Allergies* Home Medications Medication Instructions Recorded Confirmed Type melatonin 5 mg capsule 5 mg PO DAILY 12/05/21 04/23/23 History pantoprazole 40 mg tablet,delayed 80 mg PO BID 12/05/21 04/22/23 History release (Protonix) Allergies/Adverse Reactions Allergy/AdvReac Type Severity Reaction Status Date / Time No Known Allergies Allergy Verified 03/17/23 15:38 Current Medications: Generic Name Dose Route Start Last Admin Trade Name Freq PRN Reason Stop Dose Admin Sodium Chloride 1,000 mls @ 30 mls/hr 04/23/23 11:15 04/23/23 11:25 Sodium Chloride 0.9% IV 04/24/23 11:14 30 mls/hr .Q24H PERCY Administration Pertinent History/Comorbid Conditions* Medical History (Updated 03/21/23 @ 23:50 by Edmundo Valdes DO) Cyclic vomiting syndrome Surgical History (Updated 10/19/20 @ 11:33 by Enmanuel Arzola MD) H/O esophagogastroduodenoscopy (10/19/20) History of back surgery History of carpal tunnel surgery of left wrist History of cholecystectomy S/P appendectomy Family History (Updated 10/09/20 @ 11:17 by Fara Mckeon RN) Denies family history of Anesthesia complication Bleeding disorder Social History Smoking and tobacco status: former smoker Alcohol intake: never Substance/Drug Use: current Pertinent Exam Findings alert, oriented x 3, operative site marked and procedure specific exam findings Left shoulder TTP AC no posterior TTP anterior pain and tender biceps tendon full active ROM 180 5/5 strength pain with [place] positive [place] impingement positive [place]'s positive cross over arm test positive speeds test Pain with stressing shoulder stability, pain guards examination unable to fully assess neil instability 5/5 strength IR and ER w/ elbow at side Recommendations Surgery/Procedure today Other Plans: Patient understands the ins and outs of the procedure. Elects to proceed with surgical intervention of a left shoulder diagnostic and surgical arthroscopy with labral repair, possible biceps tenodesis, AC joint resection and subacromial decompression. All questions answered at this time. Elects proceed with surgery today Coding Level of Care Code Acute Code for Chg Fwd Diagnoses
--- NOTE | 2023-04-23 13:51 | ANES.PREANE2 ---
Pre-Anesthetic Assessment Height/Weight: Height 1.93 m Weight 113.398 kg Temp Pulse Resp BP Pulse Ox O2 Del Method 98.5 F 81 18 155/106 100 Room Air 04/23/23 11:18 04/23/23 11:18 04/23/23 11:18 04/23/23 11:18 04/23/23 11:18 04/23/23 11:18 Preop Diagnosis: Left shoulder labral tear, AC joint arthritis, subacromial impingement Operation Date: 04/23/23 12:35 Proposed Procedures p Left shoulder diagnostic and surgical arthroscopy 05825 with labral repair,biceps tenodesis,subacromial decompression,and AC joint resection:[id number],M75.00,S43.439A,M19.019(Left) - Edmundo Valdes DO s ac joint resection:46814,M75.22,S43.439A(Left) - Edmundo Valdes DO Familial anesthetic complications: Recall Was Beta Christiano taken within 24 hours: N/A Was Clonidine taken within 24 hours: N/A Last intake: Intake Last Liquid Date 04/22/23 Last Liquid Time 20:00 Last Solid Date 04/22/23 Last Solid Time 20:00 Social No alcohol and No tobacco Exam alert, oriented x 3, clear to auscultation bilaterally and regular rate & rhythm Airway Submandibular: within normal limits Cervical ROM: within normal limits Mallampati: Class II Dentition: full GI Gastroesophageal Reflux Disease Musc/skel Osteoarthritis/DJD Neuropsych PTSD Anesthetic Plan ASA status: 2 Anesthesia: General and Regional (specify below) (Left interscalene nerve blk) Medications/Allergies Home Medications Medication Instructions Recorded Confirmed Last Taken Type melatonin 5 mg capsule 5 mg PO DAILY 12/05/21 04/23/23 04/22/23 History pantoprazole 40 mg tablet,delayed 80 mg PO BID 12/05/21 04/22/23 04/22/23 History release (Protonix) adapalene 0.3 % topical gel 1 applic topical DAILY #45 grams 12/13/22 04/23/23 Unknown Rx clindamycin 1.2 % (1 % 1 applic topical DAILY #45 grams 12/13/22 04/23/23 Unknown Rx base)-benzoyl peroxide 5 % topical gel clindamycin phosphate 1 % lotion 1 applic topical DAILY #60 mL 12/13/22 04/23/23 Unknown Rx Allergies Allergy/AdvReac Type Severity Reaction Status Date / Time No Known Allergies Allergy Verified 03/17/23 15:38 Current Medications Generic Name Dose Route Start Last Admin Trade Name Maira PRN Reason Stop Dose Admin Sodium Chloride 1,000 mls @ 30 mls/hr 04/23/23 11:15 04/23/23 11:25 Sodium Chloride 0.9% IV 04/24/23 11:14 30 mls/hr .Q24H PERCY Administration PFSH Anesthesia Medical History Cyclic vomiting syndrome Surgical History H/O esophagogastroduodenoscopy (10/19/20) History of back surgery History of carpal tunnel surgery of left wrist History of cholecystectomy S/P appendectomy Family History Denies family history of Anesthesia complication Bleeding disorder Social History Smoking and tobacco status: former smoker Alcohol intake: never Substance/Drug Use: current Data Anesthesia Cardiac Studies: No Data to Display Anesthesia Procedures Nerve Block Nerve Block 1: Main Anesthesia: general anesthesia Time Out Performed: Yes Consent: requested by attending/covering physician, from patient, risks and benefits reviewed and patient agrees to proceed Nerve block location: interscalene (left) Anesthesia monitors applied: pulse oximetry, EKG, BP cuff and oxygen Nerve block position: semi sitting Anesthetic Used: ropivicaine 0.5% Amount of anesthesia used (mL): 30 Ultrasound used to: recognize landmarks and visualize and ID brachial plexus Nerve Stimulator Used?: No Interscalene/Femoral BLK: 2 stimuplex 22 g needle used for position and inplane approach Injection: neg aspiration of heme Patient Tolerated Procedure: well Complications: none
[2023-04-23] MEDS: ceFAZolin 2,000 MG in sodium chloride 0.9% (plus) 50 ML 100 MG IV (13:56)
[2023-04-23] MEDS: EPINEPHrine 1 mg/mL INJ 2 MG XX (14:56)
--- NOTE | 2023-04-23 16:25 | P.OP_ITS ---
Operative Report Date of procedure: April 23, 2023 Pre-op diagnosis: Preop Diagnosis Left shoulder labral tear, AC joint arthritis, subacromial impingement Procedure: Post-op diagnosis: Left shoulder anterior and posterior labral tear Left shoulder AC joint arthritis Left shoulder subacromial bursitis Procedure done: Left shoulder diagnostic and surgical arthroscopy with anterior labral repair Left shoulder diagnostic and surgical arthroscopy with posterior labral repair Left shoulder diagnostic and surgical arthroscopy subacromial decompression (bursectomy and acromioplasty) Left shoulder diagnostic and surgical arthroscopy with AC joint resection (distal clavicle excision) Surgeon: Edmundo Valdes DO Estimated blood loss: 10 mL IV fluids: 600mL Complications: None Condition: stable Disposition: same day Brief History: Patient been seen and worked up in the outpatient setting for left shoulder pain.? Patient had MRI findings which are listed below.? Patient's failed conservative treatment and given young age and findings on MRI through shared decision making feel he could have overall significant improvement with repair of his labrum subacromial decompression and AC joint resection. We talked about treatment options far as nonoperative and operative intervention..? We talked about risk benefits complication alternatives surgical nonsurgical treatment options.? Understanding his risk of surgery and agrees to proceed with surgical intervention.? All questions have been answered at this time.? Patient elects proceed with surgery and consent obtained in office. IMPRESSION: ? 1.? Marked abnormality involving the glenoid and nearly entire labrum. There is a large area of subchondral cystic changes and loss of cartilage extending over a length of 4 cm in the posterior lateral glenoid. There is diffuse involvement of the labrum. Extensive labral abnormalities with delamination. 2.? No rotator cuff tear. 3.? Advanced AC joint arthritis with encroachment upon the myotendinous insertion supraspinatus. Mild tendinopathy distal supraspinatus tendon. 4.? Mild edema coracohumeral ligament. . Procedure: Patient seen evaluated in the preoperative holding area.? Consent reviewed and signed with patient.? Once again reviewed patient's MRI results as well as? planned surgical intervention.? Correct extremity marked.? Patient seen evaluated by anesthesia department received regional anesthesia.? Once ready for surgery was taken back to the operative suite.? Patient then subsequently underwent anesthesia per the anesthesia department was transported onto the OR table.? Patient was then placed into a lateral decubitus position with a beanbag and was appropriately secured to the bed.? All bony prominences well-padded.? Patient then had the left upper extremity was then prepped and draped in standard orthopedic fashion.? Patient received appropriate preoperative antibiotics.? Final timeout performed. The left upper extremity was then held in hanging from traction utilizing sterile technique.? Next started with standard diagnostic and surgical arthroscopy with posterior portal position introduced arthroscope into the glenohumeral joint.? Visualized the glenohumeral joint I then introduced a spinal needle within the rotator cuff interval to confirm appropriate anterior portal placement.? Once this was confirmed I then made my small incision and then introduced my arthroscopic shaver into the glenohumeral joint.? After flushing the joint fluid, was clearly evident patient had biceps tendon that was intact with no significant erythema or tearing. It was clearly evident that patient had an anterior labral tear.? This did not appear to communicate and create an unstable biceps anchor as a result plan was for an anterior labral repair. I plan to address the anterior portion first. I then introduced an additional spinal needle to establish another portal with plan for appropriate angle for drilling and placing suture anchors. Once this was portal was established just off the subscapularis in order to get to roughly 4:00 where it appeared that the labral tear was most inferior at this region. Once satisfied with this I established a portal and utilized 2 purple cannula portals anteriorly in order to perform a labral repair. I utilized Arthrex 1.8 knotless fiber tack soft suture anchors. At this point in time I then placed an elevator to elevate the tear and labrum off of the glenoid introduced a shaver to debride the area lightly as well as a rasp to prep the bone for labral repair. Next I then placed my guide which was subsequently drilled and 1.8 knotless fiber tack was then impacted into place. This was then secured and confirmed to have appropriate fixation. Next I then subsequently utilizing the knotless technology subsequently utilizing a lasso with nitinol wire made appropriate purchase of redundant capsule as well as labrum once satisfied with my purchase this was then shuttled and shuttled the knotless technology through and sequentially cinched the knotless repair and had excellent fixation. Suture limbs were left for later tensioning at the end of my anterior repair. This repair appeared to be just 1 more additional suture anchor which was just on the another 1 cm spaced appropriately right adjacent to the biceps tendon insertion superiorly. I then in the same sequence placed my guide drilled placed a 1.8 Arthrex knotless fiber tack this had excellent fixation then utilizing the technology passed with a lasso of the Nitinol wire utilizing a shuttling suture and then subsequently sentient secured my anterior labral repair both limbs were then sequentially tightened until satisfactory repair position and then the arthroscopic suture cutter was then advanced and removed all excess suture. A probe was then used to examine my repair and there was satisfactory fixation and repair with appropriate spacing Next I utilized switching stick to view from my accessory anterior portal this allowed visualization of the posterior labrum. It was evident that a similar tear was noted posteriorly that would accommodate for two 1.8 knotless fiber tack sutures. I then in standard fashion utilized a spinal needle to establish a better drill guide positioning once I was satisfied with this I established this portal with an additional purple cannula. Next the elevator rasp and shaver were used to debride and prepped for labral repair and then in standard subsequent fashion I utilized the straight drill guide this was drilled right off the edge/face of the glenoid knotless fiber tack 1.8 mm was then impacted into place had excellent fixation and then utilizing the lasso ligament and all suture shuttled my shuttling stitch through and utilizing the knotless technology cinched my posterior labral repair suture to satisfactory position in The limb for later tensioning. I then repeated this once more spacing roughly 1 cm up to the posterior portion of the bicep tendon insertion. Once again knotless fiber tack was then subsequently drilled and placed with excellent fixation shuttling suture was passed with the Nitinol wire and lasso had satisfactory position and grasping the tissue I then utilizing the knotless technology sequentially cinched my posterior labral sutures till adequate tension and repair was noted I then cut the excess suture limbs and then utili zed an arthroscopic probe to inspect my repair and this was satisfactory with no space noted. It was noted that the glenohumeral joint had some grade 2 arthritis noted the humeral head appeared to have grade 1 to and the glenoid had grade 2 with a small area of 3. The axillary recess was free of loose bodies and the rest of the labrum was intact.? The undersurface of the rotator cuff was intact with no signs of rotator cuff tear.? This completed my intra-articular work all fluid was then suctioned intra-articularly arthroscope was then advanced into the subacromial space. ?Next I reintroduced the arthroscope posteriorly.? And went to the subacromial space.? I established my lateral working portal. Thermal wand was then introduced laterally and then I subsequently performed extensive bursectomy of the subacromial space.? Identified the anterior edge of the acromion the lateral edge of the acromion and performed complete bursectomy.? Next thermal wand was tracked anteriorly and identified patient had? anterior bone spur.? At this point time I proceeded my way to the AC joint once the AC joint was found was found to be significantly arthritic with a very significant tight space. ? Thermal wand was placed anteriorly to establish appropriate plane for AC joint resection.? Once appropriate margins and anterior inferior and anterior capsule was released I then introduced arthroscopic shaver and a bur and performed AC joint resection of both the acromion to coplane at the AC joint and a distal clavicle resection was then performed totaling 1 cm in size and was confirmed.? This completed my AC joint resection and I then introduced the arthroscopic shaver laterally while continuing to view posteriorly.? I then performed an acromioplasty of the anterior bone spur as well as Coplaned my acromioplasty with the AC joint.? No signs of bone spurs for impingement on the supraspinatus rotator cuff tendon. From the posterior portal I then visualized after my bursectomy of the rotator cuff tendon which was found to be pristine and intact. This completed the surgery.? All fluid was suctioned from the shoulder.? All instruments were removed.? Portal sites were closed with nylon stitches.? Xeroform 4 x 4's ABD and tape was then applied to the left shoulder and was placed into a shoulder abduction pillow sling.? Patient was then awakened from anesthesia and then taken back to PACU in stable condition.? Patient tolerated procedure without any issues. Disposition: Patient taken back in stable condition recovering well.? Dressings on in place clean dry and intact.? Patient to be nonweightbearing left shoulder. Sling in place. We will follow postoperative therapy protocol.? Patient to follow-up with me in the office in 2 weeks.? Patient will receive appropriate discharge instruction as well as pain medication postoperatively.? All questions answered.? We will contact the office for any questions or concerns.
--- NOTE | 2023-04-23 16:25 | PM.OP2 ---
Brief Operative Note Date of procedure: 04/23/23 Pre-op diagnosis: Left shoulder pain with labral tear, AC joint arthritis and subacromial imp Post-op diagnosis: same (Subacromial impingement) Procedure Done: Left shoulder diagnostic and surgical arthroscopy with anterior labral repair Left shoulder diagnostic and surgical arthroscopy with posterior labral repair Left shoulder diagnostic and surgical arthroscopy subacromial decompression (bursectomy and acromioplasty) Left shoulder diagnostic and surgical arthroscopy with AC joint resection (distal clavicle excision) Surgeon: Edmundo Valdes Estimated blood loss (mL): 10 Complications: None Post-op Plan: Patient taken to PACU in stable condition recovering well. Regional still on affect. Pain controlled. Will receive appropriate discharge instructions as well as pain medication postoperatively patient to be nonweightbearing to the left upper extremity at this time sling and abduction pillow on in place. Patient will follow-up in the orthopedic office in 2 weeks understands if there is any questions or concerns and contact the office. Condition: stable Disposition: same day Coding Level of Care Code Acute Code for Susie Ty
--- NOTE | 2023-04-23 16:25 | PM.PACU ---
PACU note Narrative: Patient taken to PACU in stable condition recovering well pain controlled. Sling with abduction pillow on in place to the left shoulder. Dressing clean dry and intact. Patient motor and sensory unable to be assessed secondary to regional anesthesia patient's hands warm well-perfused brisk cap refill less than 2 seconds Exam: awake Disposition: discharged
--- NOTE | 2023-04-23 17:20 | ANE.PACU2 ---
Inpatient post-anesthesia follow up: Airway intact: Yes Vital signs: Temperature 98 F Pulse Rate 64 Respiratory Rate 14 Blood Pressure 151/104 Pulse Oximetry 99 Oxygen Delivery Me thod Room Air Oxygen Flow Rate Fraction of Inspir ed Oxygen Hydration adequate: Yes Nausea and vomiting: No Pain level: 1 Mental status: Baseline
== END 2023-04-23 18:00 | disposition home or self-care (01) ==
PROVIDERS: PCP Emergency Medicine Emergency Medical Services; Visit Provider Student in an Organized Health Care Education/Training Program
PROC: (CPT 29805; principal; 2023-04-23 12:25)
PROC: 0RSH0ZZ Reposition Left Acromioclavicular Joint, Open Approach (ICD-10-PCS; CPT 29806; 2023-04-23 12:25)
DX: S43.492A Other sprain of left shoulder joint, initial encounter (principal); M19.012 Primary osteoarthritis, left shoulder; M75.52 Bursitis of left shoulder; M75.42 Impingement syndrome of left shoulder; Z87.891 Personal history of nicotine dependence; X58.XXXA Exposure to other specified factors, initial encounter
CPT/HCPCS: 29806; 29824; C1713; J0131; J0171; J0690; J1100; J1170; J1790; J1885; J2405; J2704; J2795; J3010; J3490; J7030

== ENCOUNTER → 2023-04-28 13:47 | Outpatient (BNVA) | payer OTHER, SELFPAY | PROVIDERS: PCP Emergency Medicine Emergency Medical Services; Visit Provider Nurse Practitioner Family | DX: L30.9 Dermatitis, unspecified (principal); L81.4 Other melanin hyperpigmentation; D22.5 Melanocytic nevi of trunk; Z71.89 Other specified counseling; L85.3 Xerosis cutis; L57.0 Actinic keratosis; L70.0 Acne vulgaris | CPT/HCPCS: 99213 ==

== ENCOUNTER → 2023-05-08 14:23 | Outpatient (BNVA) | payer OTHER, SELFPAY | PROVIDERS: PCP Emergency Medicine Emergency Medical Services; Visit Provider Student in an Organized Health Care Education/Training Program | DX: Z98.890 Other specified postprocedural states (principal) | CPT/HCPCS: 99024 ==

== ENCOUNTER 2023-05-22 07:26 | Outpatient (RCR) | payer OTHER, SELFPAY | END 2023-06-09 23:59 | disposition home or self-care (01) | LOC: SPT 07:26 | PROVIDERS: PCP Emergency Medicine Emergency Medical Services; Visit Provider Student in an Organized Health Care Education/Training Program | DX: Z47.89 Encounter for other orthopedic aftercare (principal) | CPT/HCPCS: 97161 ==

== ENCOUNTER → 2023-06-05 08:16 | Outpatient (BNVA) | payer OTHER, SELFPAY | PROVIDERS: PCP Emergency Medicine Emergency Medical Services; Visit Provider Student in an Organized Health Care Education/Training Program | DX: Z98.890 Other specified postprocedural states; S43.432A Superior glenoid labrum lesion of left shoulder, initial encounter; X58.XXXA Exposure to other specified factors, initial encounter | CPT/HCPCS: 99213 ==

== ENCOUNTER 2023-06-10 06:00 | Outpatient (RCR) | payer OTHER, SELFPAY | END 2023-07-10 10:19 | disposition home or self-care (01) | LOC: SPT 06:00 | PROVIDERS: PCP Emergency Medicine Emergency Medical Services; Visit Provider Student in an Organized Health Care Education/Training Program | DX: Z47.89 Encounter for other orthopedic aftercare (principal) | CPT/HCPCS: 97110 ==

== ENCOUNTER → 2023-07-03 14:34 | Outpatient (BNVA) | payer OTHER, SELFPAY | PROVIDERS: PCP Emergency Medicine Emergency Medical Services; Visit Provider Student in an Organized Health Care Education/Training Program | DX: Z98.890 Other specified postprocedural states (principal) | CPT/HCPCS: 99213 ==

== ENCOUNTER 2023-08-08 12:36 | Outpatient (CLI) | payer OTHER, SELFPAY ==
--- NOTE | 2023-08-08 12:45 | MR_ITS ---
WS: [id number] MRI CERVICAL SPINE NONCONTRAST TECHNIQUE: Sagittal T1, T2 and STIR imaging. Axial gradient. Patient unable to complete axial imaging due to pain. CLINICAL INFORMATION: NECK PAIN COMPARISON: None. FINDINGS: Straightening normal cervical lordosis. Cord signal is normal. No high-grade central canal stenosis. C2-C3: Mild facet arthropathy. Spinal canal and foramen are patent. C3-C4: Minimal disc bulging. Mild facet arthropathy. Mild LEFT bony foraminal narrowing. C4-C5: Mild disc bulging with moderate facet arthropathy. Moderate bilateral bony foraminal narrowing . Spinal canal is patent. C5-C6: Mild disc bulging with mild central canal stenosis. Moderate facet arthropathy. Moderate bilat eral bony foraminal narrowing. C6-C7: Mild disc bulge with osteophytic ridging. Moderate LEFT bony foraminal narrowing. Mild RIGHT f oraminal narrowing. Moderate facet arthropathy. Mild central canal stenosis. C7-T1: Mild disc osteophytic ridging. Moderate LEFT and mild RIGHT bony foraminal narrowing. Visualized brain stem structures: Normal. Prevertebral soft tissues: Normal. IMPRESSION: 1. Straightening of the normal cervical doses. Cord signal is normal. 2. Mild central canal stenosis C5-C6 and C6-C7 due to small shallow disc protrusions. 3. Moderate bilateral C4-C5, LEFT C5-C6, LEFT C6-7, and LEFT C7-T1 bony foraminal narrowing. 4. Moderate facet arthropathy C3-C4 C4-C5 C5-C6 and C6-C7.
== END 2023-08-08 12:37 | disposition home or self-care (01) ==
LOC: RAD 12:36
PROVIDERS: PCP Emergency Medicine Emergency Medical Services; Visit Provider Emergency Medicine Emergency Medical Services
DX: M54.2 Cervicalgia (principal); M48.02 Spinal stenosis, cervical region
CPT/HCPCS: 72141

== ENCOUNTER 2024-02-25 20:00 | Outpatient (CLI) | payer OTHER, SELFPAY | END 2024-02-25 20:01 | disposition home or self-care (01) | LOC: SLEEP 02-26 05:53 | PROVIDERS: PCP Emergency Medicine Emergency Medical Services; Visit Provider Emergency Medicine Emergency Medical Services | DX: R53.83 Other fatigue (principal); G47.36 Sleep related hypoventilation in conditions classified elsewhere | CPT/HCPCS: 95810 ==

== ENCOUNTER 2024-02-27 09:12 | Outpatient (CLI) | payer OTHER, SELFPAY ==
--- NOTE | 2024-02-27 09:24 | MR_ITS ---
WS: [id number] MRI LEFT KNEE HISTORY: LEFT KNEE PAIN X 2 WEEKS COMPARISON: Radiograph 01/21/2024 Anterior cruciate ligament: Intact. Posterior cruciate ligament: Intact. Medial collateral ligament: Intact. Posterior lateral corner structures: Very slight increased T2 signal in the popliteus tendon. There i s no full-thickness tear. Fibular collateral ligament is intact. Medial menisci: Intact. Normal signal, size and shape. Lateral meniscus: There is very slight blunting of the posterior horn towards the meniscal root. This is not visualized on the coronal image but only on the sagittal sequence. Extensor mechanism: Distal quadriceps tendon and patellar tendons are intact. Fluid and soft tissue: Moderate suprapatellar joint effusion. There is a small fluid collection measu ring 11 mm adjacent to the fibular head and popliteus tendon. This may be a small distended bursa or ganglion. No Gardner's cyst. Osseous and articular structures: Patellofemoral compartment: Moderate chondromalacia involving the medial patellar facet. Very mild in creased signal in the lateral patellar facet cartilage. There is a small amount of edema in the media l patella. This is just deep to the largest area of cartilaginous thinning. Medial compartment: Very mild narrowing of the medial compartment. Increased T2 signal extends obliqu dean along the weightbearing surface of the femoral cartilage. This is most consistent with a delamina tion injury of the cartilage. Lateral compartment: Minimal narrowing. IMPRESSION: 1. Moderate suprapatellar joint effusion. 2. Mild popliteus tendon sprain. 3. Very slight blunting of the posterior horn lateral meniscus at the meniscal root. Indeterminate f or meniscal root tear. There is also increased fluid at this location. 4. Mild narrowing of the medial compartment with delamination of the weightbearing surface femoral c ondyle. 5. Small fluid collection at the popliteus tendon. Mild bursitis versus ganglion. 6. Moderate chondromalacia medial patellar facet with underlying marrow edema.
== END 2024-02-27 09:13 | disposition home or self-care (01) ==
LOC: RAD 09:13
PROVIDERS: PCP Emergency Medicine Emergency Medical Services; Visit Provider Student in an Organized Health Care Education/Training Program
DX: M25.562 Pain in left knee (principal); S83.8X2A Sprain of other specified parts of left knee, initial encounter; X58.XXXA Exposure to other specified factors, initial encounter; M25.462 Effusion, left knee; M94.262 Chondromalacia, left knee
CPT/HCPCS: 73721

== ENCOUNTER → 2024-03-11 10:28 | Outpatient (BNVA) | payer OTHER, SELFPAY | PROVIDERS: PCP Emergency Medicine Emergency Medical Services; Referring Provider Emergency Medicine Emergency Medical Services; Visit Provider Student in an Organized Health Care Education/Training Program | DX: M25.561 Pain in right knee (principal); M25.562 Pain in left knee; M94.262 Chondromalacia, left knee | CPT/HCPCS: 73560; 73565; 99214 ==

== ENCOUNTER → 2024-03-16 10:27 | Outpatient (BNVA) | payer OTHER, SELFPAY | PROVIDERS: PCP Emergency Medicine Emergency Medical Services; Referring Provider Emergency Medicine Emergency Medical Services; Visit Provider Student in an Organized Health Care Education/Training Program | DX: M25.552 Pain in left hip (principal); M24.852 Other specific joint derangements of left hip, not elsewhere classified; M76.32 Iliotibial band syndrome, left leg | CPT/HCPCS: 73502; 99213 ==

== ENCOUNTER 2024-03-24 12:13 | Outpatient (RCR) | payer OTHER, SELFPAY | END 2024-04-09 23:59 | disposition home or self-care (01) | LOC: SPT 12:13 | PROVIDERS: PCP Nurse Practitioner; Visit Provider Student in an Organized Health Care Education/Training Program | DX: S83.422D Sprain of lateral collateral ligament of left knee, subsequent encounter (principal); X58.XXXD Exposure to other specified factors, subsequent encounter | CPT/HCPCS: 97110; 97161 ==

== ENCOUNTER 2024-03-24 12:16 | Outpatient (RCR) | payer OTHER, SELFPAY | END 2024-04-09 23:59 | disposition home or self-care (01) | LOC: SPT 12:16 | PROVIDERS: PCP Nurse Practitioner; Visit Provider Student in an Organized Health Care Education/Training Program | DX: M25.552 Pain in left hip (principal) | CPT/HCPCS: 97110; 97161 ==

== ENCOUNTER 2024-04-10 06:00 | Outpatient (RCR) | payer OTHER, SELFPAY | END 2024-05-09 23:59 | disposition home or self-care (01) | LOC: SPT 06:00 | PROVIDERS: PCP Nurse Practitioner; Visit Provider Student in an Organized Health Care Education/Training Program | DX: S83.422D Sprain of lateral collateral ligament of left knee, subsequent encounter (principal); X58.XXXD Exposure to other specified factors, subsequent encounter | CPT/HCPCS: 97110 ==

== ENCOUNTER 2024-04-14 10:19 | Outpatient (CLI) | payer OTHER, SELFPAY ==
--- NOTE | 2024-04-14 11:00 | MR_ITS ---
WS: [id number] EXAMINATION: MR hip LT wo con* [id number] ORDER DATE: 04/14/2024 10:27 AM COMPARISON: Radiograph 03/16/2024 HISTORY: left hip CONTRAST: None. TECHNIQUE: Coronal STIR of the Pelvis. Coronal proton density, coronal T1, axial T2 fat sat, axial T1 , sagittal T2 fat sat, and sagittal T1 performed of the hip. After contrast, axial T1 fat sat, coron al T1 fat sat, and sagittal T1 fat sat were performed. FINDINGS: Normal bone marrow signal in the pelvis and sacrum. Normal pubic rami. Normal bone marrow signal in b oth proximal femurs and femoral heads. No evidence of avascular necrosis. Normal proximal femurs. Min imal degenerative narrowing both hips. Normal acetabulum. No subchondral cystic change. Mild degenera tive arthritis LEFT sacroiliac joint partially visualized. MR/MR hip LT wo con* [id number] IMPRESSION: 1. Normal bone marrow signal in both hips and femoral heads. No evidence of av ascular necrosis or subchondral collapse. 2. Minimal degenerative narrowing both hips. 3. Normal bone marrow signal in the bony pelvis and sacrum. 4. Mild arthritis LEFT sacroiliac joint. 5. No other acute findings.
== END 2024-04-14 10:20 | disposition home or self-care (01) ==
LOC: RAD 10:19
PROVIDERS: PCP Nurse Practitioner; Visit Provider Student in an Organized Health Care Education/Training Program
DX: M46.1 Sacroiliitis, not elsewhere classified (principal)
CPT/HCPCS: 73721

== ENCOUNTER → 2024-04-15 13:55 | Outpatient (BNVA) | payer OTHER, SELFPAY | PROVIDERS: PCP Nurse Practitioner; Visit Provider Student in an Organized Health Care Education/Training Program | DX: M24.852 Other specific joint derangements of left hip, not elsewhere classified; Z98.890 Other specified postprocedural states; M76.32 Iliotibial band syndrome, left leg | CPT/HCPCS: 99213 ==

== ENCOUNTER → 2024-04-28 08:01 | Outpatient (BNVA) | payer OTHER, SELFPAY | PROVIDERS: PCP Nurse Practitioner; Referring Provider Emergency Medicine Emergency Medical Services; Visit Provider Surgery | DX: K21.9 Gastro-esophageal reflux disease without esophagitis (principal); Z86.010 Personal history of colon polyps; R10.9 Unspecified abdominal pain | CPT/HCPCS: 99204 ==

== ENCOUNTER 2024-07-08 08:44 | Day surgery (SDC) | payer OTHER, SELFPAY ==
--- OUTSIDE RECORDS SUMMARY | 2024-05-19 10:40 | XMS_ITS | Patient Health Record ---
Author Name Unknown Organization [facility] Address [address] [place] [address] Care Team Providers Care Forklift Driver Name Role Phone Charles Collins Primary Care Provider MORA De Los Santos Unavailable [phone] Allergies No Known Allergies Results Component Value Reference Range Notes Urinalysis, Routine Reviewed date:11/26/2023 04:36:34 PM Interpretation: Performing Lab: Notes/Report: Urine-Color yellow Appearance clear Glucose - Bilirubin - Ketones - Specific [place] 1.025 Occult Blood - pH 6.0 Urine Protein - Urobilinogen,Semi-Qn - Nitrite, Urine - WBC Esterase - Reason For Referral Reason [facility] Action Reminder S et 07/24/23 Diagnosis 1 Erectile dysfunction due to arterial insufficiency (N52.01) Referring Provider First Name Jose M Mills Referring Provider Last Name Nc Referred Organization [facility] Referred Provider MORA SHIELDS Referred Address [address],[address], Referred Provider Specialty Urology Referral Priority Routine Medications Medication SIG (Take, Route, Frequency, Duration) Notes Start Date End Date Status Melatonin *Pick strength-f orm from [employer] for eRX* Active Anastrozole 1 mg TAKE 1 TABLET BY RAMONA two TO three times PER week FOR 30 DAYS for 30 Active Problems Problem Type SNOMED Code ICD Code Onset Dates Problem Status W/U Status Risk Notes Problem 423091996357007 Erectile dysfunction due to arterial insufficiency (N52.01) Active confirmed Problem Hypertrophy of breast (282129959) Gynecomastia, male (N62) Active confirmed Problem 521555393 Low energy (R53.83) Active confirmed Problem 93841422 Hypogonadism in male (E29.1) Active confirmed Problem 857771190 Erectile dysfunction, unspecified erectile dysfunction type (N52.9) Active confirmed Problem Male hypogonadism (20765695) Hypogonadism, male (E29.1) Active confirmed Problem 9401783 Low libido (R68.82) Active confirmed Vital Signs Heart Rate 57 /min 04/26/2024 Temperature 97.4 degrees Fahrenheit 04/26/2024 Height-cm 190.5 cm 04/26/2024 Blood pressure diastolic 82 mm Hg 04/26/2024 Weight-kg 113.4 kg 04/26/2024 Height 75 in 04/26/2024 Blood pressure systolic 131 mm Hg 04/26/2024 Weight 250 lbs 04/26/2024 BMI 31.24 kg/m2 04/26/2024 Encounters Encounter Location Date Provider Diagnosis [facility] [address] [facility] [place] [address] 08/18/2023 MORA SHIELDS Low libido R68.82 ; Hypogonadism in male E29.1 and Gynecomastia, male N62 [facility] [address] [facility] [place] [address] 11/26/2023 MORA SHIELDS Hypogonadism in male E29.1 [facility] [address] [facility] [place] [address] 02/26/2024 MORA SHIELDS Hypogonadism in male E29.1 and Low energy R53.83 [facility] [address] [facility] [place] [address] 04/26/2024 MORA SHIELDS Hypogonadism in male E29.1 and Low energy R53.83 DO NOT USE THIS FACILITY [facility] [address] [place] [address], [place] [id number] 12/02/2023 MORA SHIELDS Hypogonadism in male E29.1 [facility] [address] [facility] [place] [address] 01/12/2024 MORA SHIELDS Hypogonadism in male E29.1 [facility] [address] [facility] [place] [address] 03/24/2024 MORA SHIELDS Assessments Encounter Date Diagnosis (ICD Code) Assessment Notes Treatment Notes Treatment Clinical Notes 08/18/2023 Hypogonadism in male (ICD-10 - E29.1) 08/18/2023 Low libido (ICD-10 - R68.82) 11/26/2023 Hypogonadism in male (ICD-10 - E29.1) 1. Home with wound care and dressing instructions. No hot tub or soaking incision. Informed to call with any wound care infection or extrusion issues. 2. Return to clinic in one month with testosterone and HCT. 3. Return to clinic in 3 months with testosterone, HCT, LFTs, and PSA. 4. Will re-dose Testopel PRN (usually 3-6 months) 02/26/2024 Low energy (ICD-10 - R53.83) 02/26/2024 Hypogonadism in male (ICD-10 - E29.1) 12/02/2023 Hypogonadism in male (ICD-10 - E29.1) 01/12/2024 Hypogonadism in male (ICD-10 - E29.1) 04/26/2024 Low energy (ICD-10 - R53.83) 04/26/2024 Hypogonadism in male (ICD-10 - E29.1) 08/18/2023 Gynecomastia, male (ICD-10 - N62) 04/26/2024 Other 1. Home with wound care and dresing instructions. No hot tub or soaking incision. Informed to call with any wound care infection or extrusion issues. 2. Return to clinic in 3months with testosterone, HCT, LFTs, and PSA. 3. Will re-dose Testopel PRN (3-6 months) Plan Of Treatment Pending Test Test Name Order Date Testosterone, total 02/26/2024 Liver Function Test (LFT) 01/12/2024 Basic Metabolic Panel 90943 12/31/2022 CBC w\ Auto Diff 78953 12/31/2022 CBC w\ Auto Diff 56660 02/24/2023 Estradiol Level 10280 12/31/2022 Estradiol Level 55079 01/09/2023 Follicle Stimulating Hormone (FSH) 93914 12/31/2022 Hepatic Function Panel 41688 02/24/2023 Hepatic Function Panel 46082 12/31/2022 Lipid Panel Reflex DLDL 38334, 22509 Luteinizing Hormone 69401 12/31/2022 PSA Diagnostic--21144 01/09/2023 PSA Diagnostic--79826 02/24/2023 Testosterone Total 45576 01/09/2023 Testosterone Total 34836 02/24/2023 Thyroid Stimulating Hormone (TSH) 23248 12/31/2022 Testosterone, Bio and SHBG, Adult Male 8 4403, 77552 12/31/2022 CBC (INCLUDES DIFF/PLT) (6399) PSA, TOTAL (5363) 01/12/2024 TESTOSTERONE, TOTAL, MS (21838K7) 2023 Next Appt Details Provider Name:MORA Pickett, 07/26/2024 03:10:00 PM, [address] [place], [address], Insurance Providers Payer Name Payer Address Payer Phone Subscriber Number Group Number Insured Name Patient Relationship to Insured Coverage Start Date Coverage End Date [employer] [address] [place], [place] [id number] Isauro Chacon Self - patient is the insured Medical (General) History Medical History History ICD Code acid reflux/ heart burn ED low TT Surgical History Surgery Date(Month/Year) back surgeries x7 appendectomy cholecystectomy carpal tunnel release ulner nerve redisposition shoulder surgery Hospitalization History Reason Date(Month/Year) above surgeries staff infection
--- OUTSIDE RECORDS SUMMARY | 2024-05-19 10:40 | XMS_ITS | Patient Health Record ---
Author Name Unknown Organization [facility] Address [address] [place], [place] [address] Care Team Providers Care Box Strapper Name Role Phone [facility] Primary Care Provider Marcela karon Murdock MD, Mian Unavailable [phone] [place], [place] Unavailable Unavailable ALLERGIES No Known Allergies REASON FOR REFERRAL No Information MEDICATIONS Medication SIG (Take, Route, Frequency, Duration) Notes Start Date End Date Status ibuprofen 800 mg 1 tab orally every 2 4 hours Active acetaminophen-hydrocodone 325 mg-5 mg 1 tab orally every 4-6 hours Active melatonin 10 mg 1 tab orally once a day (at bedtime) Active SOCIAL HISTORY Tobacco Use: Social History Observation Description Date Details (start date - stop date) Former Smoker NA - NA Sex Assigned At : Social History Observation Description Sex Assigned At Unknown alcohol Question Answer Notes Did you have a drink containing alcohol in the p ast year? No Points 0 Interpretation Negative Tobacco use: Question Answer Notes : former smoker How long has it been since you last smoked? 1-5 years PROBLEMS Problem Type ICD Code Onset Dates Problem Status W/U Status Risk SNOMED Code Notes Problem Low back pain (M54.5) Active confirmed Low back pain (367424939) Problem Other director long term care (current) drug therapy (Z79.899) Active confirmed Long-term current use of drug therapy (307593955) PLAN OF TREATMENT No Information Insurance Providers Payer Name Payer Address Payer Phone Subscriber Number Group Number Insured Name Patient Relationship to Insured Coverage Start Date Coverage End Date [employer] [address] [place] [address] [id number] Isauro Chacon Self - patient is the insured MEDICAL (GENERAL) HISTORY Medical History History ICD Code Low back pain Lumbosacral or cervical strain Lumbar radiculopathy Degenerative arthritis of the spine Post-traumatic stress disorder Migraine headaches Paralysis of all radicular n erve groups as per medical records review as per medical records review Paralysis of upper radicular nerve group Tinnitus Varicose veins Claw foot Limited flexion of the knee Retina scars Hiatal hernia Cyclical vomiting syndrome unrelated to migraine Disorder uvula of palate Gastro-esophageal reflux disorder with e sophagitis Traumatic brain injury Major depressive disorder, single episod e Anxiety Insomnia Surgical History Surgery Date(Month/Year) Removal of wisdom teeth, 1998 Appendectomy, 2004 Left carpal tunnel release, 2006 Left ulnar nerve decompression, 2011 Lumbar disectomy, performed in [place], [place] , 2004 L2-4 PLIF for L3 burst fracture, perform ed in [place], [place], 10/26/17 Debridement of spine, MRSA x 2, performe d in [place], [place], 2017 Cholecystectomy, 08/2019 Hardware replaced at L2-4 PL IF, performed at [facility] in [place], [place] by Dr. Scar Garcia, 11/29/19 Lateral L3 corpectomy with L 2-4 instability, performed at [facility] in [place], [place] by Dr. Scar Garcia, 10/24/20
--- OUTSIDE RECORDS SUMMARY | 2024-05-19 10:40 | XMS_ITS | Patient Health Record ---
Author Name Unknown Organization [facility] Address [address] [place] [address] Care Team Providers Care Manager Market Name Role Phone Jose M FREDERICK Primary Care Provider Nadira OneillLudwin resendiz Unavailable [phone] Allergies No Known Allergies Reason For Referral No Information Medications Medication SIG (Take, Route, Frequency, Duration) Notes Start Date End Date Status PriLOSEC Active Melatonin Active Testosterone Cypionate 200 MG/ML 0.25 mL Intramuscular every 2 weeks for 60 days 01/09/2023 Active Testosterone Cypionate 200 MG/ML 0.5 mL Intramuscular once weekly for 7 days Please supply patient with appropriate supplies including syringes, needles (large), alcohol wipes, etc. 02/24/2023 Active Social History Tobacco Use: Social History Observation Description Date Details (start date - stop date) Former Smoker NA - NA xTobacco Use/Smoking Question Answer Notes Are you a former smoker How long has it been since you last smoked? 5-10 years Problems Problem Type SNOMED Code ICD Code Onset Dates Problem Status W/U Status Risk Notes Problem 096908528851071 Erectile dysfunction due to arterial insufficiency (N52.01) Active confirmed Problem 918134924 Erectile dysfunction, unspecified erectile dysfunction type (N52.9) Active confirmed Problem 05737725 Hypogonadism in male (E29.1) Active confirmed Problem 4925278 Low libido (R68.82) Active confirmed Problem 887210603 Low energy (R53.83) Active confirmed Plan Of Treatment Pending Test Test Name Order Date Basic Metabolic Panel (BMP) 21098 2022 CBC w\ Auto Diff 53051 12/31/2022 CBC w\ Auto Diff 63450 02/24/2023 Estradiol Level 51916 01/09/2023 Estradiol Level 67345 12/31/2022 Follicle Stimulating Hormone (FSH) 13304 12/31/2022 Hepatic Function Panel 17386 12/31/2022 Hepatic Function Panel 74603 02/24/2023 Lipid Panel Reflex DLDL 97730, 33379 Luteinizing Hormone 39719 12/31/2022 PSA Diagnostic--87531 02/24/2023 PSA Diagnostic--92622 01/09/2023 Testosterone Total 51601 01/09/2023 Testosterone Total 52560 02/24/2023 Thyroid Stimulating Hormone (TSH) 46434 12/31/2022 Testosterone, Bio and SHBG, Adult Male 8 4403, 47198 12/31/2022 Insurance Providers Payer Name Payer Address Payer Phone Subscriber Number Group Number Insured Name Patient Relationship to Insured Coverage Start Date Coverage End Date [employer] [address] [place] [phone] [id number] Isauro Chacon Self - patient is the insured Medical (General) History Medical History History ICD Code acid reflux/ heart burn ED low TT Surgical History Surgery Date(Month/Year) ulner nerve redisposition carpal tunnel release cholecystectomy appendectomy back surgeries x7 Hospitalization History Reason Date(Month/Year) above surgeries staff infection
--- OUTSIDE RECORDS SUMMARY | 2024-07-08 08:47 | XMS_ITS ---
Author Name Unknown Organization [facility] Address [address] [place] [address] Care Team Providers Care Tail Board Man Name Role Phone Charles Collins Primary Care Provider MORA De Los Santos [phone] Encounters Encounter Location Date Provider Diagnosis [facility] [address] [place] [address] 05/31/2024 MORA SHIELDS Hypogonadism in male E29.1 Assessments Encounter Date Diagnosis (ICD Code) Assessment Notes Treat ment Notes Treatment Clinical Notes 05/31/2024 Hypogonadism in male (ICD-10 - E29.1) Plan Of Treatment Pending Test Test Name Order Date PSA, TOTAL (5363) 05/31/2024 CBC w/ Auto Diff 05/31/2024 Hepatic Function Panel 05/31/2024 Testosterone Total 05/31/2024 Next Appt Details Provider Name:MORA Pickett, 07/26/2024 03:10:00 PM, [address] [place], [address], Progress Notes * Isauro CHACONDOB: 1975 (48 yo M)Acc No.[id number]:05/31/2024 Patient:?Isauro CHACON :1975???Age:48 Y???Sex:Male Address:[address] [place] [address] Subjective: * Chief Complaints: * ??? * Medical History:? * Surgical History:? * Hospitalization/Major Diagno stic Procedure:? * Medications:? Objective: * Vitals:? * Physical Examination:? Assessment: * Assessment: 1.?Hypogonadism in male - E2 9.1??? Plan: * Treatment: ?LAB: CBC w/ Auto Diff* Kayla Valentino 05/31/2024 0 9:19:08 AM CDT >Patient needs to obtain labs prior to appt on 07/26/24. Please fax results back to our clinic. ?LAB: Hepatic Function Panel* Kayla Valentino 05/31/2024 0 9:19:08 AM CDT >Patient needs to obtain labs prior to appt on 07/26/24. Please fax results back to our clinic. ?LAB: Testosterone Total* Kayla Valentino 05/31/2024 0 9:19:08 AM CDT >Patient needs to obtain labs prior to appt on 07/26/24. Please fax results back to our clinic. * Procedure Codes:? * * Date:?
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
--- OUTSIDE RECORDS SUMMARY | 2024-07-08 08:47 | XMS_ITS ---
Author Name Unknown Organization [facility] Address [address] [facility] [address] Care Team Providers Care Rehabilitation Counsellor Name Role Phone Charles Collins Primary Care Provider MORA De Los Santos [phone] Encounters Encounter Location Date Provider Diagnosis [facility] [address] [facility] [place] [address] 05/31/2024 MORA SHIELDS Hypogonadism in male E29.1 Assessments Encounter Date Diagnosis (ICD Code) Assessment Notes Treat ment Notes Treatment Clinical Notes 05/31/2024 Hypogonadism in male (ICD-10 - E29.1) Plan Of Treatment Next Appt Details Provider Name:MORA Pickett, 07/26/2024 03:10:00 PM, [address] [place], [address], Progress Notes * Isauro CHACONDOB: 1975 (48 yo M)Acc No.[id number]:05/31/2024 Patient:?Isauro CHACON :1975???Age:48 Y???Sex:Male Address:[address] [place] [address] Subjective: * Chief Complaints: * ??? * Medical History:? * Surgical History:? * Hospitalization/Major Diagno stic Procedure:? * Medications:? Objective: * Vitals:? * Physical Examination:? Assessment: * Assessment: 1.?Hypogonadism in male - E2 9.1??? Plan: * Treatment: * Procedure Codes:? * * Date:?
--- OUTSIDE RECORDS SUMMARY | 2024-07-08 08:47 | XMS_ITS | Patient Health Record ---
Author Name Unknown Organization [facility] Address [address] [place] [address] Care Team Providers Care Director Of Assessment Name Role Phone Charles Collins Primary Care Provider MORA De Los Santos Unavailable [phone] Allergies No Known Allergies Results Component Value Reference Range Notes Urinalysis, Routine Reviewed date:11/26/2023 04:36:34 PM Interpretation: Performing Lab: Notes/Report: Urine-Color yellow Appearance clear Glucose - Bilirubin - Ketones - Specific Hart 1.025 Occult Blood - pH 6.0 Urine Protein - Urobilinogen,Semi-Qn - Nitrite, Urine - WBC Esterase - Reason For Referral Reason [facility] Action Reminder S et 07/24/23 Diagnosis 1 Erectile dysfunction due to arterial insufficiency (N52.01) Referring Provider First Name JoseM Mills Referring Provider Last Name Ga Referred Organization [facility] Referred Provider MORA SHIELDS Referred Address [address],[address], Referred Provider Specialty Urology Referral Priority Routine Medications Medication SIG (Take, Route, Frequency, Duration) Notes Start Date End Date Status Melatonin *Pick strength-f orm from [facility] for eRX* Active Anastrozole 1 mg TAKE 1 TABLET BY RAMONA two TO three times PER week FOR 30 DAYS for 30 Active Problems Problem Type SNOMED Code ICD Code Onset Dates Problem Status W/U Status Risk Notes Problem 907029748395644 Erectile dysfunction due to arterial insufficiency (N52.01) Active confirmed Problem Hypertrophy of breast (807949853) Gynecomastia, male (N62) Active confirmed Problem 735390841 Low energy (R53.83) Active confirmed Problem 25705018 Hypogonadism in male (E29.1) Active confirmed Problem 489688159 Erectile dysfunction, unspecified erectile dysfunction type (N52.9) Active confirmed Problem Male hypogonadism (00019072) Hypogonadism, male (E29.1) Active confirmed Problem 7816926 Low libido (R68.82) Active confirmed Vital Signs Heart Rate 57 /min 04/26/2024 Temperature 97.4 degrees Fahrenheit 04/26/2024 Height-cm 190.5 cm 04/26/2024 Blood pressure diastolic 82 mm Hg 04/26/2024 Weight-kg 113.4 kg 04/26/2024 Height 75 in 04/26/2024 Blood pressure systolic 131 mm Hg 04/26/2024 Weight 250 lbs 04/26/2024 BMI 31.24 kg/m2 04/26/2024 Encounters Encounter Location Date Provider Diagnosis [facility] [address] [place] [address] 05/31/2024 MORA SHIELDS Hypogonadism in male E29.1 [facility] 140 [facility] [address] [place] [address] 05/31/2024 MORA SHIELDS Hypogonadism in male E29.1 DO NOT USE THIS FACILITY [facility] [address] [place] [address], [place] [id number] 12/02/2023 MORA SHIELDS Hypogonadism in male E29.1 [facility] [address] [place] [address] 01/12/2024 MORA SHIELDS Hypogonadism in male E29.1 [facility] [address] [place] [address] 03/24/2024 MORA SHIELDS [facility] [address] [place] [address] 08/18/2023 MORA SHIELDS Low libido R68.82 ; Hypogonadism in male E29.1 and Gynecomastia, male N62 [facility] [address] [place] [address] 02/26/2024 MORA SHIELDS Hypogonadism in male E29.1 and Low energy R53.83 [facility] [address] [place] [address] 04/26/2024 MORA SHIELDS Hypogonadism in male E29.1 and Low energy R53.83 [facility], [facility] [address] [place] [address] 11/26/2023 MORA SHIELDS Hypogonadism in male E29.1 Assessments [...] 04/26/2024 Hypogonadism in male (ICD-10 - E29.1) 05/31/2024 Hypogonadism in male (ICD-10 - E29.1) 05/31/2024 Hypogonadism in male (ICD-10 - E29.1) 08/18/2023 [...] Function Test (LFT) 01/12/2024 Basic Metabolic Panel 01934 12/31/2022 CBC w\ Auto Diff 54812 12/31/2022 CBC w\ Auto Diff 07943 02/24/2023 Estradiol Level 22078 12/31/2022 Estradiol Level 02092 01/09/2023 Follicle Stimulating Hormone (FSH) 61874 12/31/2022 Hepatic Function Panel 05203 02/24/2023 Hepatic Function Panel 53525 12/31/2022 Lipid Panel Reflex DLDL 52598, 60111 Luteinizing Hormone 82106 12/31/2022 PSA Diagnostic--57242 01/09/2023 PSA Diagnostic--90623 02/24/2023 Testosterone Total 62458 01/09/2023 Testosterone Total 80733 02/24/2023 Thyroid Stimulating Hormone (TSH) 44480 12/31/2022 Testosterone, Bio and SHBG, Adult Male 8 4403, 52747 12/31/2022 CBC (INCLUDES DIFF/PLT) (6399) PSA, TOTAL (5363) 01/12/2024 PSA, TOTAL (5363) 05/31/2024 TESTOSTERONE, TOTAL, MS (11854X2) 2023 CBC w/ Auto Diff 05/31/2024 Hepatic Function Panel 05/31/2024 Testosterone Total 05/31/2024 Next Appt Details Provider Name:MORA Pickett, 07/26/2024 03:10:00 PM, [address] [place], [address], Insurance Providers Payer Name Payer Address Payer Phone Subscriber Number Group Number Insured Name Patient Relationship to Insured Coverage Start Date Coverage End Date [employer] [address] [place], [place] [phone] [id number] Isauro Chacon Self - patient is the insured Medical (General) History Medical History History ICD Code acid reflux/ heart burn ED low TT Surgical History Surgery Date(Month/Year) back surgeries x7 appendectomy cholecystectomy carpal tunnel release ulner nerve redisposition shoulder surgery Hospitalization History Reason Date(Month/Year) above surgeries staff infection
--- OUTSIDE RECORDS SUMMARY | 2024-07-08 08:48 | XMS_ITS ---
Author Name Unknown Organization [facility] Address [address] [place] [address] Care Team Providers Care Hospital Account Manager Name Role Phone Jose M FREDERICK Primary Care Provider Ludwin Luis Unavailable [phone] REASON FOR VISIT 2 mo w/ labs Encounters Encounter Location Date Provider Diagnosis [facility] [address] [place] [address] 05/09/2023 Ludwin Singh Plan Of Treatment No Information Progress Notes * Isauro CHACON ADOB: (48 yo M)Acc No.[id number]:05/09/2023 Progress Notes Patient:?Isauro CHACON Provider:?Ludwin Singh MD :1975???Age:47 Y???Sex:Male Jefferson e:05/09/2023 Address[address] [id number] Pcp:Jose M FREDERICK Subjective: * Chief Complaints: * ???1. 2 mo w/ labs. * Medical History:? Objective: * Vitals:? Assessment: Plan: * Treatment: * Billing Information: * Visit Code:? * Procedure Codes:? * Electronic signature of Aust in MD Francisco on 07/08/2024 at 08:47 AM CDT Sign off status: Pending * Provider:?Ludwin Singh MD Date:? Generated for Printi ng/Faxing/eTransmitting on:?07/08/2024 08:47 AM CDT
--- OUTSIDE RECORDS SUMMARY | 2024-07-08 08:48 | XMS_ITS | Patient Health Record ---
Author Name Unknown Organization [facility] Address [address] [place] [address] Care Team Providers Care Middle [employer] Principal Name Role Phone Jose M FREDERICK Primary Care Provider Nadira OneillLudwin resendiz Unavailable [phone] Allergies No Known Allergies Reason For Referral [...] Problem Status W/U Status Risk Notes Problem 524801038527328 Erectile dysfunction due to arterial insufficiency (N52.01) Active confirmed Problem 875365917 Erectile dysfunction, unspecified erectile dysfunction type (N52.9) Active confirmed Problem 71737340 Hypogonadism in male (E29.1) Active confirmed Problem 7403119 Low libido (R68.82) Active confirmed Problem 170206594 Low energy (R53.83) Active confirmed Plan Of Treatment Pending Test Test Name Order Date Basic Metabolic Panel (BMP) 50682 2022 CBC w\ Auto Diff 73113 12/31/2022 CBC w\ Auto Diff 58283 02/24/2023 Estradiol Level 11430 01/09/2023 Estradiol Level 24477 12/31/2022 Follicle Stimulating Hormone (FSH) 88567 12/31/2022 Hepatic Function Panel 23775 12/31/2022 Hepatic Function Panel 52665 02/24/2023 Lipid Panel Reflex DLDL 76900, 29155 Luteinizing Hormone 10498 12/31/2022 PSA Diagnostic--20373 02/24/2023 PSA Diagnostic--87765 01/09/2023 Testosterone Total 31297 01/09/2023 Testosterone Total 24850 02/24/2023 Thyroid Stimulating Hormone (TSH) 59310 12/31/2022 Testosterone, Bio and SHBG, Adult Male 8 4403, 03532 12/31/2022 Insurance Providers Payer Name Payer Address Payer Phone Subscriber Number Group Number Insured Name Patient Relationship to Insured Coverage Start Date Coverage End Date [employer] [address] [place] [phone] [id number] Isauro Chacon Self - patient is the insured Medical (General) History Medical History History ICD Code acid reflux/ heart burn ED low TT Surgical History Surgery Date(Month/Year) appendectomy cholecystectomy carpal tunnel release ulner nerve redisposition back surgeries x7 Hospitalization History Reason Date(Month/Year) above surgeries staff infection
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
--- OUTSIDE RECORDS SUMMARY | 2024-07-08 08:48 | XMS_ITS ---
Author Name Unknown Organization [facility] Address [address] [place] [address] Care Team Providers Care Evaluation Specialist Name Role Phone Jose M FREDERICK Primary Care Provider Unavailab melanie SinghLudwin Unavailable [phone] REASON FOR VISIT 2 mo w/ labs (r/s from 05/09) Medications Medication SIG (Take, Route, Frequency, Duration) Notes Start Date End Date Status PriLOSEC Active Melatonin Active Testosterone Cypionate 200 MG/ML 0.25 mL Intramuscular every 2 weeks for 60 days 01/09/2023 Active Testosterone Cypionate 200 MG/ML 0.5 mL Intramuscular once weekly for 7 days Please supply patient with appropriate supplies including syringes, needles (large), alcohol wipes, etc. 02/24/2023 Active Encounters Encounter Location Date Provider Diagnosis [facility] [address] [place] [address] 07/24/2023 Ludwin Singh Erectile dysfunction due to arterial insufficiency N52.01 ; Low energy R53.83 ; Low libido R68.82 and Hypogonadism in male E29.1 Assessments Encounter Date Diagnosis (ICD Code) Assessment Notes Treat ment Notes Treatment Clinical Notes 07/24/2023 Erectile dysfunction due to arterial insufficiency (ICD-10 - N52.01) 07/24/2023 Low energy (ICD-10 - R53.83) 07/24/2023 Low libido (ICD-10 - R68.82) 07/24/2023 Hypogonadism in male (ICD-10 - E29.1) Plan Of Treatment No Information Progress Notes * Isauro CHACON ADOB: (48 yo M)Acc No.[id number]:07/24/2023 Progress Notes Patient:?Isauro CHACON Provider:?Ludwin Singh MD :1975???Age:47 Y???Sex:Male Jefferson e:07/24/2023 Address:[address] [id number] Pcp:Jose M FREDERICK Subjective: * Chief Complaints: * ???1. 2 mo w/ labs (r/s from 05/09). * HPI: ???Provider Note:? The patiet is [...] was greater than 1500. However, he reports he had his testosterone checked prior to starting TRT and it was near 800. He states while on TRT he did not need any Viagra or Cialis and had symptomatic improvement in energy level, mood and libido. ED treatment options discussed. He elected to continue Cialis. TT 768 on 01/06/23. Patient was notified that per AUA guidelines, it is not recommended to give TRT with normal levels. He was seen on 02/24/23, and reported he was taking TRT with 50mg injections n5hoxyk. TT 542, PSA 2.07, and Estradiol 20 on 02/04/23. This was drawn 2 days prior to taking next injection. He reports he doesn't feel any difference in symptoms. However, he reports difficulties administering due to very small needles, and doesn't think he got the full dose injected. He was advised to take Test cypionate IM injections 100mg weekly. The patient presents today for 2-month f/u with lab. * ROS:?General - Multi System:?Constitutional?Denies, chills , fever , BODY ACHES.?Cardiovascular?Denies recent chest pains.?Respiratory?Denies shortness of breath.?Gastrointestinal?Denies constipation, diarrhea, vomiting.?Genitourinary?As per HPI.?Integumentary?Denies any rashes.? * Medical History:? * Medications:?Taking PriLOSEC , Taking Melatonin , Taking Testosterone Cypionate 200 MG/ML Solution 0.25 mL Intramuscular every 2 weeks , Taking Testosterone Cypionate 200 MG/ML Solution 0.5 mL Intramuscular once weekly , Notes to Pharmacist: Please supply patient with appropriate supplies including syringes, needles (large), alcohol wipes, etc. Objective: * Vitals:? Assessment: * Assessment: 1.?Low energy - R53.83 (Prim afua)???2.?Erectile dysfunction due to arterial insufficiency - N52.01???3.?Low libido - R68.82???4.?Hypogonadism in male - E29.1??? 47 y/o male with low energy, low libido and ED. He is performing TRT with IM injections q2 weeks. Plan: * Treatment: * Billing Information: * Visit Code:? * Procedure Codes:? * Electronic signature of Aust in MD Francisco on 07/08/2024 at 08:47 AM CDT Sign off status: Pending * Provider:?Ludwin Singh MD Date:? Generated for Nadia ingram/Ramón/Bridgett on:?07/08/2024 08:47 AM CDT
[2024-07-08 09:06] VITALS: BP 114/84; PULSE 71; RESP 17; TEMP 36.9; O2SAT 100; BMI 28.7
[2024-07-08] MEDS: sodium chloride 0.9% 1,000 ML 30 ML IV (09:12)
--- NOTE | 2024-07-08 09:21 | ANES.PREANE2 ---
Pre-Anesthetic Assessment Height/Weight: Height 1.91 m Weight 104.326 kg Temp Pulse Resp BP Pulse Ox O2 Del Method 98.4 F 71 17 114/84 100 Room Air 07/08/24 09:06 07/08/24 09:06 07/08/24 09:06 07/08/24 09:06 07/08/24 09:06 07/08/24 09:06 Operation Date: 07/08/24 09:50 Proposed Procedures p EGD 46243, 26431, G0105, K21.9, Z86.010(Not Applicable) - Jaylan Mckoy MD s Colonoscopy(Not Applicable) - Jaylan Mckoy MD Familial anesthetic complications: Recall during his back surgery, appendectomy, and carpal tunnel. Was Beta Christiano taken within 24 hours: N/A Was Clonidine taken within 24 hours: N/A Last intake: Intake Last Liquid Date 07/07/24 Last Liquid Time 20:00 Last Solid Date 07/06/24 Last Solid Time 17:00 Social No alcohol and No tobacco Marijuana Exam alert, oriented x 3, clear to auscultation bilaterally and regular rate & rhythm Airway Mallampati: Class II Dentition: full and other (implants) GI Gastroesophageal Reflux Disease Anesthetic Plan ASA status: 2 Anesthesia: MAC Risk of > 500 ml blood loss (7ml/kg in children): No Medications/Allergies Home Medications Medication Instructions Recorded Confirmed Last Taken Type melatonin 5 mg capsule 5 mg PO DAILY 12/05/21 07/08/24 07/07/24 History pantoprazole 40 mg tablet,delayed 80 mg PO BID 12/05/21 07/08/24 07/07/24 History release (Protonix) Allergies Allergy/AdvReac Type Severity Reaction Status Date / Time No Known Allergies Allergy Verified 07/06/24 10:37 Current Medications Generic Name Dose Route Start Last Admin Trade Name Freq PRN Reason Stop Dose Admin Sodium Chloride 1,000 mls @ 30 mls/hr 07/08/24 09:00 07/08/24 09:12 Sodium Chloride 0.9% IV 30 mls/hr .Q24H PERCY Administration PFSH Anesthesia Medical History Cyclic vomiting syndrome Surgical History (Updated 04/28/24 @ 10:58 by Jaylan Mckoy MD) Hx of colonoscopy with polypectomy 2022 [place] History of carpal tunnel surgery of left wrist S/P appendectomy History of back surgery History of cholecystectomy Family History Denies family history of Anesthesia complication Bleeding disorder Social History Smoking and tobacco/nicotine status: never used tobacco/nicotine Alcohol intake: never Substance/Drug Use: current Data Anesthesia Cardiac Studies: No Data to Display
--- NOTE | 2024-07-08 09:38 | W.PM.OPSFHP ---
Same Day Surgery H&P Indication for Procedure/HPI DATE OF PROCEDURE: July 08, 2024 CHIEF COMPLAINT/INDICATIONFOR SURGICAL PROCEDURE: need for screening colonoscopy and gerd PREOP DIAGNOSIS: need for screening colonoscopy and gerd PLANNED PROCEDURE: Operation Date: 07/08/24 09:50 Proposed Procedures p EGD 88834, 81840, G0105, K21.9, Z86.010(Not Applicable) - Jaylan Mckoy MD s Colonoscopy(Not Applicable) - Jaylan Mckoy MD Medications/Allergies* Home Medications Medication Instructions Recorded Confirmed Type melatonin 5 mg capsule 5 mg PO DAILY 12/05/21 07/08/24 History pantoprazole 40 mg tablet,delayed 80 mg PO BID 12/05/21 07/08/24 History release (Protonix) Allergies/Adverse Reactions Allergy/AdvReac Type Severity Reaction Status Date / Time No Known Allergies Allergy Verified 07/06/24 10:37 Current Medications: Generic Name Dose Route Start Last Admin Trade Name Freq PRN Reason Stop Dose Admin Sodium Chloride 1,000 mls @ 30 mls/hr 07/08/24 09:00 07/08/24 09:12 Sodium Chloride 0.9% IV 30 mls/hr .Q24H PERCY Administration Pertinent History/Comorbid Conditions* Medical History (Updated 04/06/24 @ 06:42 by Edmundo Valdes DO) Cyclic vomiting syndrome Surgical History (Updated 04/28/24 @ 10:58 by Jaylan Mckoy MD) Hx of colonoscopy with polypectomy 2022 [place] History of carpal tunnel surgery of left wrist S/P appendectomy History of back surgery History of cholecystectomy Family History (Updated 10/09/20 @ 11:17 by Fara Mckeon, MITCH) Denies family history of Anesthesia complication Bleeding disorder Social History Smoking and tobacco/nicotine status: never used tobacco/nicotine Alcohol intake: never Substance/Drug Use: current Pertinent Exam Findings alert, oriented x 3 and clear to auscultation bilaterally Recommendations Surgery/Procedure today Coding Level of Care Code Acute Code for Chg Fwd
[2024-07-08 10:53] VITALS: BP 118/70; PULSE 62; RESP 12; TEMP 36.1; O2SAT 98
[2024-07-08 10:58] VITALS: BP 122/79; PULSE 60; RESP 16; O2SAT 99
[2024-07-08 11:08] VITALS: BP 124/78; PULSE 62; RESP 18; O2SAT 99
--- NOTE | 2024-07-08 11:35 | ANE.PACU2 ---
Inpatient post-anesthesia follow up: Airway intact: Yes Vital signs: Temperature 97.0 F Pulse Rate 62 Respiratory Rate 18 Blood Pressure 124/78 Pulse Oximetry 99 Oxygen Delivery Me thod Room Air Oxygen Flow Rate Fraction of Inspir ed Oxygen Hydration adequate: Yes Nausea and vomiting: No Pain level: 1 Mental status: Baseline
== END 2024-07-08 11:35 | disposition home or self-care (01) ==
PROVIDERS: PCP Nurse Practitioner; Visit Provider Surgery
PROC: 0DJ08ZZ Inspection of Upper Intestinal Tract, Via Natural or Artificial Opening Endoscopic (ICD-10-PCS; CPT 43235; principal; 2024-07-08 09:50)
PROC: 0DJD8ZZ Inspection of Lower Intestinal Tract, Via Natural or Artificial Opening Endoscopic (ICD-10-PCS; CPT 45378; 2024-07-08 09:50)
DX: Z12.11 Encounter for screening for malignant neoplasm of colon (principal); K21.9 Gastro-esophageal reflux disease without esophagitis; Z86.010 Personal history of colon polyps; K29.50 Unspecified chronic gastritis without bleeding; D12.8 Benign neoplasm of rectum
CPT/HCPCS: 43239; 45380; 88305; 88342; J2704; J7030

== ENCOUNTER → 2024-08-04 13:33 | Outpatient (BNVA) | payer OTHER, SELFPAY | PROVIDERS: PCP Nurse Practitioner; Visit Provider Surgery | DX: Z09 Encounter for follow-up examination after completed treatment for conditions other than malignant neoplasm (principal) | CPT/HCPCS: 99213 ==

== ENCOUNTER 2024-11-11 11:13 | Outpatient (CLI) | payer OTHER, SELFPAY ==
[2024-11-11 11:46] LABS: Basophils % 0.5 %; Eosinophils # 0.1 10^3/uL (0.0-0.8); Eosinophils % 0.9 %; Hematocrit 47.5 % (37-53); Lymphocytes # 0.9 10^3/uL (0.8-4.8); Lymphocytes % 11.1 %; Mean Corpuscular HGB Conc 33.3 g/dL (30-55); Mean Corpuscular Hemoglobin 30.9 pg (27-33); Mean Platelet Volume 9.8 fL (7.4-10.4); Monocytes # 0.4 10^3/uL (0.2-0.9); Monocytes % 4.5 %; Neutrophils # 7.02 10^3/uL (1.8-7.7); Neutrophils % 82.6 %; Nucleated Red Blood Cells % 0 %; Platelet Count 199 10^3/cmm (157-399); Red Blood Count 5.11 10^6/uL (3.85-5.65); Red Cell Distribution Width 12.1 % (12.1-15.1); White Blood Count 8.49 10^3/uL (3.29-11.43)
[2024-11-11 12:57] LABS: Estradiol 9.5 pg/mL (7.63-42.6)
== END 2024-11-11 11:14 | disposition home or self-care (01) ==
LOC: LAB 11:19
PROVIDERS: PCP Nurse Practitioner; Visit Provider Nurse Practitioner Family
DX: E29.1 Testicular hypofunction (principal); Z12.5 Encounter for screening for malignant neoplasm of prostate
CPT/HCPCS: 36415; 82670; 84403; 85025; G0103

== ENCOUNTER → 2024-11-30 11:06 | Outpatient (BNVA) | payer OTHER, SELFPAY | PROVIDERS: PCP Nurse Practitioner; Visit Provider Surgery | DX: K64.9 Unspecified hemorrhoids (principal) | CPT/HCPCS: 99214 ==

== ENCOUNTER → 2024-12-22 08:12 | Outpatient (BNVA) | payer OTHER, SELFPAY | PROVIDERS: PCP Nurse Practitioner; Visit Provider Surgery | DX: K64.9 Unspecified hemorrhoids (principal) | CPT/HCPCS: 99213 ==

== ENCOUNTER 2025-02-03 08:05 | Outpatient (CLI) | payer OTHER, SELFPAY ==
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
== END 2025-02-03 08:06 | disposition home or self-care (01) ==
PROVIDERS: PCP Nurse Practitioner; Visit Provider Nurse Practitioner
DX: I82.402 Acute embolism and thrombosis of unspecified deep veins of left lower extremity (principal)
CPT/HCPCS: 93970

== ENCOUNTER 2025-02-24 09:48 | Outpatient (CLI) | payer OTHER, SELFPAY ==
--- NOTE | 2025-02-24 09:55 | USR_ITS ---
PROCEDURE INFORMATION: Exam: US Bilateral Noninvasive Physiologic Study of the Lower Extremity Arteries, Limited Exam date and time: 02/24/2025 9:59 AM Age: 49 years old Clinical indication: Pain; Leg, upper; Bilateral; Additional info: Swelling of entire left leg post surgery TECHNIQUE: Imaging protocol: Bilateral Limited bilateral noninvasive physiologic studies of lower extremity arteries. Waveforms were obtained and evaluated. Images were documented and archived. Exam is limited. COMPARISON: US soft tissue/extremity [id number] 08/22/2022 6:59 AM FINDINGS: Right Ankle-Brachial Index: BERTA at the posterior tibial is 1.05, at the dorsalis pedis 1.07 and at the digit 1.01. Left Ankle-Brachial Index: BERTA at the posterior tibial is 1.01, the dorsalis pedis 1.07 and at the digit 1.0. US/CV ankle brachial index [id number] IMPRESSION: No evidence of stenosis or occlusion in the lower extremity. Normal BERTA.
== END 2025-02-24 09:49 | disposition home or self-care (01) ==
PROVIDERS: PCP Nurse Practitioner; Visit Provider Nurse Practitioner
DX: I73.9 Peripheral vascular disease, unspecified (principal)
CPT/HCPCS: 93922

== ENCOUNTER 2025-03-21 09:57 | Outpatient (CLI) | payer OTHER, SELFPAY ==
[2025-03-21 11:03] LABS: Basophils % 0.4 %; Eosinophils # 0.1 10^3/uL (0.0-0.8); Eosinophils % 0.9 %; Hematocrit 47.7 % (37-53); Lymphocytes # 0.9 10^3/uL (0.8-4.8); Lymphocytes % 12.9 %; Mean Corpuscular HGB Conc 31.9 g/dL (30-55); Mean Corpuscular Hemoglobin 28.8 pg (27-33); Mean Corpuscular Volume 90.5 fl (82-101); Monocytes # 0.5 10^3/uL (0.2-0.9); Monocytes % 6.7 %; Neutrophils # 5.51 10^3/uL (1.8-7.7); Neutrophils % 78.8 %; Nucleated Red Blood Cells % 0 %; Platelet Count 204 10^3/cmm (157-399); Red Blood Count 5.27 10^6/uL (3.85-5.65); Red Cell Distribution Width 13.2 % (12.1-15.1); White Blood Count 6.99 10^3/uL (3.29-11.43)
[2025-03-21 11:28] LABS: Alanine Aminotransferase 37 U/L (0-41); Albumin Level 4.2 g/dL (3.5-5.2); Alkaline Phosphatase 110 U/L (40-130); Aspartate Amino Transferase 37 U/L (0-40); Estradiol 31.9 pg/mL (7.63-42.6); Globulin 2.7 g/dL (1.3-4.6); Total Bilirubin 0.4 mg/dL (0.15-1.2); Total Protein 6.9 g/dL (6.6-8.7)
[2025-03-21 11:58] LABS: Testosterone Total 321.3 ng/dL (249-836)
== END 2025-03-21 09:58 | disposition home or self-care (01) ==
LOC: LAB 09:58
PROVIDERS: PCP Nurse Practitioner; Visit Provider Urology
DX: E29.1 Testicular hypofunction (principal); R97.20 Elevated prostate specific antigen [PSA]; Z12.5 Encounter for screening for malignant neoplasm of prostate
CPT/HCPCS: 36415; 80076; 82670; 84153; 84403; 85025

== ENCOUNTER 2025-03-25 10:21 | Outpatient (CLI) | payer OTHER, SELFPAY ==
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
== END 2025-03-25 10:22 | disposition home or self-care (01) ==
PROVIDERS: PCP Nurse Practitioner; Visit Provider Nurse Practitioner
DX: Z01.89 Encounter for other specified special examinations (principal); R60.0 Localized edema; S32.030D Wedge compression fracture of third lumbar vertebra, subsequent encounter for fracture with routine healing; S32.010D Wedge compression fracture of first lumbar vertebra, subsequent encounter for fracture with routine healing; X58.XXXD Exposure to other specified factors, subsequent encounter; Z98.1 Arthrodesis status; M51.369 Other intervertebral disc degeneration, lumbar region without mention of lumbar back pain or lower extremity pain; M46.95 Unspecified inflammatory spondylopathy, thoracolumbar region; M71.38 Other bursal cyst, other site; M48.07 Spinal stenosis, lumbosacral region; M47.896 Other spondylosis, lumbar region; M48.061 Spinal stenosis, lumbar region without neurogenic claudication; R93.7 Abnormal findings on diagnostic imaging of other parts of musculoskeletal system; M47.892 Other spondylosis, cervical region; M47.894 Other spondylosis, thoracic region; M48.02 Spinal stenosis, cervical region; M48.04 Spinal stenosis, thoracic region; M51.34 Other intervertebral disc degeneration, thoracic region; M24.28 Disorder of ligament, vertebrae; M25.78 Osteophyte, vertebrae; M51.379 Other intervertebral disc degeneration, lumbosacral region without mention of lumbar back pain or lower extremity pain
CPT/HCPCS: 72148

== ENCOUNTER 2025-10-20 13:22 | Outpatient (CLI) | payer OTHER, SELFPAY ==
[2025-10-20 15:07] LABS: Hematocrit 46.0 % (37-53); Hemoglobin 15.50 g/dL (11.27-16.99); Mean Corpuscular HGB Conc 33.7 g/dL (30-55); Mean Corpuscular Hemoglobin 30.5 pg (27-33); Mean Corpuscular Volume 90.4 fl (82-101); Nucleated Red Blood Cells % 0 %; Platelet Count 201 10^3/cmm (157-399); Red Blood Count 5.09 10^6/uL (3.85-5.65); White Blood Count 6.16 10^3/uL (3.29-11.43)
[2025-10-20 15:45] LABS: Prostate Specific Antigen 2.010 ng/mL (0-4)
== END 2025-10-20 13:23 | disposition home or self-care (01) ==
PROVIDERS: PCP Nurse Practitioner; Visit Provider Nurse Practitioner Family
DX: E29.1 Testicular hypofunction (principal)
CPT/HCPCS: 36415; 82670; 84153; 84402; 84403; 85025